=== PATIENT | female | born 1985 | race Caucasian/White ===

== ENCOUNTER 2016-11-02 04:44 | Inpatient (IN) | payer OTHER ==
[2016-11-02 05:15] LABS: APPEARANCE,URINE SLIGHTLY-CLOUDY; BILIRUBIN,URINE NEGATIVE (NEGATIVE); GLUCOSE, URINE NEGATIVE (NEGATIVE); KETONES,URINE TRACE mg/dL (NEGATIVE); LEUKOCYTE ESTERASE,URINE TRACE (NEGATIVE); NITRITE,URINE NEGATIVE (NEGATIVE); PROTEIN,URINE NEGATIVE (NEGATIVE); URINE SPECIFIC GRAVITY 1.006; UROBILINOGEN,URINE NEGATIVE mg/dL (<2.0)
[2016-11-02 05:31] LABS: URINE BARBITURATES SCREEN NEGATIVE; URINE METHADONE SCREEN NEGATIVE; URINE OPIATES LOW NEGATIVE; URINE PHENCYCLIDINE SCREEN NEGATIVE
[2016-11-02] MEDS ORDERED: RINGERS SOLUTION,LACTATED 1,000 ML IV PRN (05:45)
[2016-11-02] MEDS ORDERED: LIDOCAINE 1% INJ-PF (10 MG/ML) 30 ML SDV ONE (06:15)
[2016-11-02] MEDS ORDERED: OXYTOCIN/NORMAL SALINE 20 UNIT/1,000 ML RTUINJ ONE (06:15)
[2016-11-02] MEDS ORDERED: MISOPROSTOL 0.2 MG TABLET ONE (06:15)
[2016-11-02 06:24] LABS: ABSOLUTE BASOPHILS # (AUTO) 0.1 10^3/uL (0.0-0.2); ABSOLUTE EOSINOPHILS # (AUTO) 0.1 10^3/uL (0.0-0.6); ABSOLUTE LYMPHOCYTES (AUTO) 1.7 10^3/uL (0.5-4.7); ABSOLUTE MONOCYTES (AUTO) 0.6 10^3/uL (0.1-1.4); ABSOLUTE NEUT (AUTO) 11.5 10^3/uL (1.7-8.2); BASOPHILS % (AUTO) 0.6 % (0-2); EOSINOPHILS % (AUTO) 0.8 % (0-6); HEMATOCRIT 37.3 % (36.0-47.0); HEMOGLOBIN 13.2 g/dL (12.0-15.5); HGB HCT DIFFERENCE 2.3; MEAN CORPUSCULAR HEMOGLOBIN 32.2 pg (27.0-33.4); MEAN CORPUSCULAR HGB CONC 35.3 g/dL (32.0-36.0); MEAN CORPUSCULAR VOLUME 91 fl (80-97); RED BLOOD COUNT 4.09 10^6/uL (3.72-5.28); RED CELL DISTRIBUTION WIDTH 14.7 % (11.5-14.0); SEGMENTED NEUTROPHILS % (AUTO) 82.6 % (42-78); WHITE BLOOD COUNT 13.9 10^3/uL (4.0-10.5)
--- NOTE | 2016-11-02 08:01 | L&D Flow Sheet ---
LD Flowsheet Datetime Report Generated by CPN: 11/02/2016 08:00 Datetime: 11/02/2016 07:52 Vital Signs Stage of : Recovery (Meg Bishop RN) NBP Sys/Radha/Mean (mmHg): 140 (QS system process) : 74 (QS system process) : 99 (QS system process) Pulse: 107 (QS system process) Respirations: 18 (Meg Bishop RN) Pain Pain Scale: 1 (Meg Bishop, RN) Pain Presence: Constant (Meg Bishop, RN) Pain Type: Burning (Meg Bishop, RN) Pain Location: Perineum (Meg Bishop, RN) Datetime: 11/02/2016 07:47 Stage 2 Comments: Delivery liveborn male placed on maternal abdomen, dried and stimulated with lusty cry noted. Cord clamped and cut after delay with placement skin to skin on maternla chest (Meg Bishop, RN) Datetime: 11/02/2016 07:45 Pushing Position: Pushing with Contractions (Meg Bishop, RN) Pushing Progress: Descent with Pushing; with Pushing (Meg Dario, RN) Datetime: 11/02/2016 07:41 Stage 2 Pushing: Involuntary Pushing (Meg Dario, RN) Pushing Position: Pushing with Contractions (Meg Dario, RN) Pushing Progress: Presenting Part Visible (Meg Bishop, RN) Stage 2 Comments: Dr Raman and RN at bedside to remain at bedside throughout second stage continuously assessing heart rate while pushing with contractions. RN at bedside adjusting monitors (Meg Dario, RN) Datetime: 11/02/2016 07:40 Vaginal Exam Dilatation (cm): 10.0 (Meg Bishop, RN) Effacement (%): 100 (Meg Bishop, RN) Station: 3 (Meg Bishop, RN) Exam by: Vega (Meg Bishop, RN) Vaginal Bleeding: Normal Show (Meg Bishop, RN) Datetime: 11/02/2016 07:35 Monitor Interventions for UA: [place] Adjusted (Meg Dario, RN) Monitor Interventions for FHR: Ultrasound Adjusted (Meg Dario, RN) Patient Position/Activity: HOB Lowered; Peanut Ball; Right Extreme (Meg Bishop, RN) Datetime: 11/02/2016 07:33 Vaginal Exam Dilatation (cm): 9.5 (Meg Dario, RN) Effacement (%): 90 (Meg Dario, RN) Datetime: 11/02/2016 07:31 I/O Interventions: Straight Cath (ml) @ by Dr Vega (Meg Dario, RN) Datetime: 11/02/2016 07:26 Temperature (F): 97.7 (Meg Bishop, RN) Temperature (C): 36.5 (QS system process) Temperature Route: Axillary (Meg Bishop, RN) LaborFlag: Antepartum (QS system process) Datetime: 11/02/2016 07:19 Patient Position/Activity: Hands-Knees (Meglacey Bishop, RN) Datetime: 11/02/2016 07:15 Uterine Activity Monitor Mode: External; Palpation (Emg Dario, RN) Frequency (min): 2-4 (Meg Dario, RN) Quality: Moderate to Strong (Meg Dario, RN) Duration (sec): 50-80 (Meg Dario, RN) Resting Tone (Palpate): Relaxed (Meg Dario, RN) Assessment A Monitor Mode: External US (Meg Dario, RN) FHR Baseline Rate : 120 (Meg Dario, RN) Variability: Moderate 6-25 bpm (Meg Dario, RN) Accelerations: 15X15 (Meg Dario, RN) Decelerations: Early; Variable (Meg Dario, RN) Datetime: 11/02/2016 07:10 Pulse: 109 (QS system process) SpO2 (%): 97 (QS system process) LaborFlag: Antepartum (QS system process) Datetime: 11/02/2016 07:06 Communication Communication: RN at Bedside; Provider at Bedside (Sully Ring, RN) Datetime: 11/02/2016 07:05 Pulse: 115 (QS system process) SpO2 (%): 97 (QS system process) LaborFlag: Antepartum (QS system process) Datetime: 11/02/2016 07:03 Communication Comments: Report to A. Dario RN. Care relinquished at this time. (Sully Ring, RN) Datetime: 11/02/2016 07:01 NBP Sys/Radha/Mean (mmHg): 136 (QS system process) : 83 (QS system process) : 105 (QS system process) Pulse: 107 (QS system process) LaborFlag: Antepartum (QS system process) Datetime: 11/02/2016 07:00 Pulse: 107 (QS system process) SpO2 (%): 97 (QS system process) Uterine Activity Monitor Mode: External; Palpation (Sully Ring, RN) Frequency (min): 1.5-3 (Sully Ring, RN) Quality: Moderate to Strong (Sully Ring, RN) Duration (sec): 40-90 (Sully Ring, RN) Resting Tone (Palpate): Relaxed (Sully Ring, RN) Assessment A Monitor Mode: External US (Sully Ring, RN) FHR Baseline Rate : 145 (Sully Ring, RN) Variability: Moderate 6-25 bpm (Sully Ring, RN) Accelerations: None (Sully Ring, RN) Decelerations: Early; Late (Sully Ring, RN) LaborFlag: Antepartum (QS system process) Datetime: 11/02/2016 06:55 Pulse: 99 (QS system process) SpO2 (%): 97 (QS system process) SpO2 (%): 94 (QS system process) LaborFlag: Antepartum (QS system process) Datetime: 11/02/2016 06:54 Actions for Decelerations: IV Bolus (Sully Ring, RN) Oxygen Method: Non-Rebreather (Sully Ring, RN) Patient Position/Activity: Left Extreme (Sully Ring, RN) Datetime: 11/02/2016 06:52 Vaginal Exam Dilatation (cm): 8.5 (Sully Ring, RN) Effacement (%): 90 (Sully Ring, RN) Station: -1 (Sully Ring, RN) Exam by: B. Ring RN (Sully Ring, RN) Vaginal Bleeding: None (Sully Ring, RN) Cervix, Consistency: Soft (Sully Ring, RN) Datetime: 11/02/2016 06:51 Vaginal Exam Comments: Pt requesting to be checked and stating a lot of pressure. (Sully Ring, RN) Datetime: 11/02/2016 06:50 Pulse: 107 (QS system process) SpO2 (%): 95 (QS system process) LaborFlag: Antepartum (QS system process) Datetime: 11/02/2016 06:48 Pulse: 108 (QS system process) SpO2 (%): 94 (QS system process) LaborFlag: Antepartum (QS system process) Datetime: 11/02/2016 06:45 Pulse: 109 (QS system process) SpO2 (%): 91 (QS system process) LaborFlag: Antepartum (QS system process) Datetime: 11/02/2016 06:40 Pulse: 105 (QS system process) SpO2 (%): 94 (QS system process) LaborFlag: Antepartum (QS system process) Datetime: 11/02/2016 06:37 Pulse: 115 (QS system process) SpO2 (%): 94 (QS system process) LaborFlag: Antepartum (QS system process) Datetime: 11/02/2016 06:35 Pulse: 111 (QS system process) SpO2 (%): 93 (QS system process) LaborFlag: Antepartum (QS system process) Datetime: 11/02/2016 06:30 NBP Sys/Radha/Mean (mmHg): 136 (QS system process) : 85 (QS system process) : 105 (QS system process) Pulse: 102 (QS system process) Pulse: 101 (QS system process) Pulse: 106 (QS system process) SpO2 (%): 94 (QS system process) Uterine Activity Monitor Mode: External; Palpation (Sully Ring, RN) Frequency (min): 1.5-3 (Sully Ring, RN) Quality: Moderate to Strong (Sully Ring, RN) Duration (sec): 50-90 (Sully Ring, RN) Resting Tone (Palpate): Relaxed (Sully Ring, RN) Assessment A Monitor Mode: External US (Sully Ring, RN) FHR Baseline Rate : 140 (Sully Ring, RN) Variability: Moderate 6-25 bpm (Sully Ring, RN) Accelerations: 15X15 (Sully Ring, RN) Decelerations: Late (Sully Ring, RN) Actions for Decelerations: IV Bolus; Provider Reviewed Strip (Sully Ring, RN) LaborFlag: Antepartum (QS system process) Datetime: 11/02/2016 06:26 Comments: RN at bedside. Maternal heartrate recorded. Monitors adjusted. (Sully Ring, RN) Datetime: 11/02/2016 06:23 Actions for Decelerations: Side to Side (Sully Ring, RN) Patient Position/Activity: Left Extreme (Sully Ring, RN) Datetime: 11/02/2016 06:21 Patient Position/Activity: Right Lateral (Sully Ring, RN) Datetime: 11/02/2016 06:20 Vaginal Exam Dilatation (cm): 6.5 (Sully Ring, RN) Effacement (%): 90 (Sully Ring, RN) Station: -2 (Sully Ring, RN) Exam by: Dr. Vega (Sully Ring, RN) Membrane Status: Ruptured (Sully Ring, RN) Membranes Rupture Method: Artificial (Sully Ring, RN) Amniotic Fluid Color: Clear (Sully Ring, RN) Amniotic Fluid Amount: Moderate (Sully Ring, RN) Cervix, Consistency: Soft (Sully Ring, RN) Datetime: 11/02/2016 06:18 Communication Communication: RN at Bedside; Provider at Bedside (Sully Ring, RN) Datetime: 11/02/2016 06:15 Provider Reviewed Strip: Yes (Sully Ring, RN) Communication Comments: DrJonathan Vega on nurse's unit (Sully Ring, RN) Datetime: 11/02/2016 06:00 NBP Sys/Radha/Mean (mmHg): 134 (QS system process) : 86 (QS system process) : 105 (QS system process) Pulse: 110 (QS system process) Uterine Activity Monitor Mode: External; Palpation (Sully Ring, RN) Frequency (min): 1.5-3.5 (Sully Ring, RN) Quality: Moderate to Strong (Sully Ring, RN) Duration (sec): 40-80 (Sully Ring, RN) Resting Tone (Palpate): Relaxed (Sully Ring, RN) Assessment A Monitor Mode: External US (Sully Ring, RN) FHR Baseline Rate : 140 (Sully Ring, RN) Variability: Moderate 6-25 bpm (Sully Ring, RN) Accelerations: 15X15 (Sully Ring, RN) Decelerations: Late; Variable (Sully Ring, RN) LaborFlag: Antepartum (QS system process) Datetime: 11/02/2016 05:50 Procedures: Consents Signed (Crystal Blanding, RN) Datetime: 11/02/2016 05:46 Actions for Decelerations: Oxygen Applied (Sully Ring, RN) Patient Position/Activity: Left Extreme (Sully Ring, RN) Communication Communication: RN at Bedside (Sully Ring, RN) Datetime: 11/02/2016 05:45 Patient Care IV/Blood Work: IV Started; IV Bolus Started (Renate Nolan, RN) Patient Care Comments: LR bolus started (Renate Nolan, RN) Datetime: 11/02/2016 05:38 Communication Comments: Call placed to Dr. Vega. Report to include relevant patient history, SVE, toco data, FHR, vitals. Orders received to admit patient and provider en route to unit. (Sully Sunshine, RN) Datetime: 11/02/2016 05:30 NBP Sys/Radha/Mean (mmHg): 121 (QS system process) : 78 (QS system process) : 94 (QS system process) Pulse: 104 (QS system process) Assessment A Monitor Mode: External US (Sully Ring, RN) FHR Baseline Rate : 145 (Sully Ring, RN) Variability: Minimal - Undetectable to <=5 bpm (Sully Ring, RN) Accelerations: None (Sully Ring, RN) Decelerations: Variable (Sully Ring, RN) Actions for Decelerations: Side to Side (Sully Ring, RN) Comments: (Sully Ring, RN) LaborFlag: Antepartum (QS system process) Datetime: 11/02/2016 05:06 Vaginal Exam Dilatation (cm): 4.0 (Sully Ring, RN) Effacement (%): 80 (Sully Ring, RN) Station: -2 (Sully Ring, RN) Exam by: B. Ring RN (Sully Ring, RN) Vaginal Bleeding: None (Sully Ring, RN) Cervix, Consistency: Soft (Sully Ring, RN) Datetime: 11/02/2016 05:05 I/O Interventions: Clear Liquids Given (Sully Ring, RN) Datetime: 11/02/2016 05:00 NBP Sys/Radha/Mean (mmHg): 137 (QS system process) : 79 (QS system process) : 102 (QS system process) Pulse: 100 (QS system process) Respirations: 18 (Sully Ring, RN) Temperature (F): 99.0 (Sully Ring, RN) Temperature (C): 37.2 (QS system process) Temperature Route: Oral (Sully Ring, RN) Frequency (min): every 4-5 minutes per pt (Sully Ring, RN) Pain Pain Scale: 2 (Sully Ring, RN) Pain Presence: Intermittent (Sully Ring, RN) Pain Type: Contraction (Sully Ring, RN) Pain Location: Abdomen; Back; Perineum (Sully Ring, RN) Pain Goal: 1 (Sully Ring, RN) Pain Relief Measures: Comfort Measures (Sully Ring, RN) Pain Coping: Talking Through Contractions; Breathing Through Contractions; Declines Medication or Epidural (Sully Ring, RN) Membrane Status: Intact (Sully Ring, RN) Vaginal Bleeding: None (Sully Ring, RN) Maternal Assessment Level of Consciousness: Fully Conscious (Sully Ring, RN) DTR's/Clonus: DTRs 2+; No Clonus (Sully Ring, RN) Headache: Denies (Sully Ring, RN) Breath Sounds, Left: Clear and Equal (Sully Ring, RN) Breath Sounds, Right: Clear and Equal (Sully Ring, RN) Nausea/Vomiting: Denies (Sully Ring, RN) RUQ Epigastric Pain: Denies (Sully Ring, RN) Teaching Instructional Method: Verbal; Patient Instructed; Family/Support Person Instructed; Verbalized Understanding (Sully Ring, RN) Plan of Care: Plan of Care Discussed (Sully Ring, RN) Unit Routine: [place] to Room; Call Moses; Bed; Handwashing; Monitoring; Safety/Fall Risk Prevention; Bathroom Privileges (Sully Ring, RN) LaborFlag: Antepartum (QS system process) Datetime: 11/02/2016 04:56 Vital Signs Stage of : Antepartum (Sully Ring, RN) Datetime: 11/02/2016 04:44 Membranes Ruptured Date/Time: 11/02/2016 06:22 (Sully Sunshine RN) Amniotic Fluid Odor: Normal (Meg Bishop RN)
[2016-11-02] MEDS ORDERED: ZOLPIDEM TARTRATE 5 MG TABLET PO PRN (08:53)
[2016-11-02] MEDS ORDERED: DIPH/PERTUSS(ACELL)/TETANUS VAC/PF 0.5 ML SYR (>=10YO) IM PRN (08:53)
[2016-11-02] MEDS ORDERED: ACETAMINOPHEN WITH CODEINE #3 TABLET PO PRN ×2 (08:53)
[2016-11-02] MEDS ORDERED: MEASLES,MUMPS&RUBELLA VACC/PF 0.5 ML VIAL SUBCUT PRN (08:53)
[2016-11-02] MEDS ORDERED: OXYTOCIN/NORMAL SALINE 1,000 ML IV PRN (08:53)
[2016-11-02] MEDS ORDERED: BENZOCAINE/MENTHOL AEROSOL SPRAY 56 ML TOP PRN (08:53)
[2016-11-02] MEDS ORDERED: DIBUCAINE 1% OINTMENT 28 GM TP PRN (08:53)
[2016-11-02] MEDS ORDERED: PRENATAL VITAMIN W-O CA NO5/FE FUMARATE/FA CAPSULE ONE (10:04)
[2016-11-02] MEDS ORDERED: FERROUS SULFATE 325 MG TABLET PO ONE (10:05)
[2016-11-02] MEDS ORDERED: DOCUSATE SODIUM 100 MG CAPSULE ONE (10:05)
[2016-11-02] MEDS ORDERED: SENNOSIDES/DOCUSATE 8.6-50 MG 1 EACH TABLET ONE (10:05)
[2016-11-02] MEDS: PRENATAL VITAMIN W-O CA NO5/FE FUMARATE/FA CAPSULE PO SCH (10:06)
[2016-11-02] MEDS: FERROUS SULFATE 325 MG TABLET PO SCH ×2 (10:06→17:54)
[2016-11-02] MEDS: SENNOSIDES/DOCUSATE 8.6-50 MG 1 EACH TABLET PO SCH (10:06)
[2016-11-02] MEDS: DOCUSATE SODIUM 100 MG CAPSULE PO SCH ×2 (10:06→17:54)
--- NOTE | 2016-11-02 10:31 | Delivery Summary ---
Del Sum A-C Datetime Report Generated by CPN: 11/02/2016 10:31 DELIVERY PERSONNEL DELIVERY PERSONNEL: [phone] Delivery Doctor:: Anastasia Vega MD Labor and Delivery Nurse:: Meg Bishop RNinstrumental teacher Nurse:: LUZ De León Nursery Nurse:: LUZ [place] Yeast Maker/INFECTION PREVENTION PRACTITIONER: [facility] Yeast Maker/INFECTION PREVENTION PRACTITIONER: Zenaida Phillips, ENTERPRISE INTEGRATION DEVELOPER Additional Personnel: : Jael Soliz, RNC MATERNAL INFORMATION Delivery Anesthesia: Local Medications After Delivery: Pitocin Bolus-Please Comment Meds After Delivery Comment: Pitocin 20 units in 1000 ml NSS open for bolus Maternal Complications: None Provider Comments: VMI delivered in [place] presentation with tight nuchal cord. Shoulders and body delivered without difficulty. Cord doubly clamped and cut and to maternal abdomen. Placenta delivered intact spontaneously. FF at U. 2nd degree perineal laceration repaired in usual fashion and hemostatic. Mother and baby stable upon provider leaving the room. Apgars 9/10. LABOR SUMMARY EDC: 11/13/2016 00:00 No. Babies in Womb: 1 Attempted: No Labor Anesthesia: None LABOR INFORMATION Reason for Induction: Not Applicable Complete Dilatation: 11/02/2016 07:40 Oxytocin: N/A Group B Beta Strep: negative Antibiotics # of Doses: 0 Steroids Given: None Reason Steroids Not Administered: Not Applicable MEMBRANES Membranes Rupture Method: Artificial Rupture of Membranes: 11/02/2016 06:22 Length of Rupture (hr): 1.42 Amniotic Fluid Color: Clear Amniotic Fluid Amount: Moderate Amniotic Fluid Odor: Normal STAGES OF LABOR Stage 2 hr: 0 Stage 2 min: 7 Stage 3 hr: -23 Stage 3 min: -56 VAGINAL DELIVERY Episiotomy: None Laceration Extension: Second Degree Laceration Type: Perineal Laceration Repair: Yes Laceration Repair Note: 2nd degree laceration repaired in usual fashion Sponge Count Correct: N/A Sharps Count Correct: N/A CSECTION DELIVERY Primary Indication: N/A Secondary Indication: N/A CSection Urgency: N/A CSection Incidence: N/A Labor: N/A Elective: N/A CSection Incision: N/A BABY A INFORMATION Delivery Date/Time: 11/02/2016 07:47 Method of Delivery: Vaginal Born in Route : No : N/A Forceps: N/A Vacuum Extraction: N/A Shoulder Dystocia : No PRESENTATION/POSITION BABY A Presentation: Cephalic Cephalic Presentation: Vertex Breech Presentation: N/A PLACENTA INFORMATION BABY A Placenta Delivery Time : 11/01/2016 07:51 Placenta Method of Delivery: Spontaneous Placenta Status: Delivered SCORES BABY A Heart Rate 1 min: >100 bpm Resp Effort 1 min: Good Cry Reflex Irritability 1 min: Cough or Sneeze or Pulls Away Muscle Tone 1 min: Active Motion Color 1 min: Body [place], Extremities Blue Resuscitation Effort 1 min: Tactile Stimulation SCORE 1 MIN: 9 Heart Rate 5 min: >100 bpm Resp Effort 5 min: Good Cry Reflex Irritability 5 min: Cough or Sneeze or Pulls Away Muscle Tone 5 min: Active Motion Color 5 min: Completely [place] Resuscitation Effort 5 min: N/A SCORE 5 MIN: 10 Resuscitation Effort 10 min: N/A INFORMATION BABY A Gestational Age at Delivery: 38.3 Gestational Status: Early Term- 37- 38.6 Weeks Outcome : Liveborn Condition : Stable Infant Sex: Male IDENTIFICATION BABY A Infant Verification Date/Time: 11/02/2016 08:02 ID Band Number: [id number] Mother's Name Verified: Yes Infant RN Verifying : Jael Smithfield RNC Additional Verifying Personnel: D [facility] RNC WEIGHT/LENGTH BABY A Infant Birthweight (gm): 3790 Infant Weight (lb): 8 Infant Weight (oz): 6 Length (in): 19.75 Length (cm): 50.17 CORD INFORMATION BABY A No. Cord Vessels: 3 Nuchal Cord : Around Neck x1, Loose Cord Blood Taken: Yes-For Storage (Mom's Blood type +) Infant Suction: Mouth; Nose ASSESSMENT BABY A Complications: Multiple Variable Decels Respirations: Appears Normal Skin to Skin: Yes Truck Packer/ALS Called : No BABY B INFORMATION : N/A SIGNATURES Signature: with User ID: [email or web address]
--- NOTE | 2016-11-02 12:54 | L&D Discharge Summary ---
OB Discharge Summary Datetime Report Generated by CPN: 11/02/2016 12:54 DISCHARGE DIAGNOSIS Gestation: 38.3 Number of Babies in Womb: 1 Parity: 1
[2016-11-02] MEDS: IBUPROFEN 800 MG TABLET PO SCH ×2 (13:48→21:27)
--- NOTE | 2016-11-02 16:46 | L&D Discharge Summary ---
OB Discharge Summary Datetime Report Generated by CPN: 11/02/2016 16:45 DISCHARGE DIAGNOSIS Gestation: 38.3 Number of Babies in Womb: 1 Parity: 1
--- NOTE | 2016-11-02 16:46 | L&D Flow Sheet ---
LD Flowsheet Datetime Report Generated by CPN: 11/02/2016 16:45 Datetime: 11/02/2016 09:37 NBP Sys/Radha/Mean (mmHg): 122 (QS system process) : 66 (QS system process) : 86 (QS system process) Pulse: 90 (QS system process) Respirations: 16 (Meg Dario, RN) Datetime: 11/02/2016 09:22 NBP Sys/Radha/Mean (mmHg): 124 (QS system process) : 63 (QS system process) : 90 (QS system process) Pulse: 97 (QS system process) Respirations: 16 (Meg Bishop, RN) Datetime: 11/02/2016 09:07 NBP Sys/Radha/Mean (mmHg): 115 (QS system process) : 59 (QS system process) : 82 (QS system process) Pulse: 104 (QS system process) Respirations: 16 (Meg Bishop, RN) Datetime: 11/02/2016 08:52 NBP Sys/Radha/Mean (mmHg): 120 (QS system process) : 68 (QS system process) : 91 (QS system process) Pulse: 98 (QS system process) Respirations: 16 (Meg Bishop, RN) Datetime: 11/02/2016 08:37 NBP Sys/Radha/Mean (mmHg): 126 (QS system process) : 74 (QS system process) : 93 (QS system process) Pulse: 101 (QS system process) Respirations: 16 (Meg Dario, RN) Datetime: 11/02/2016 08:22 NBP Sys/Radha/Mean (mmHg): 130 (QS system process) : 67 (QS system process) : 90 (QS system process) Pulse: 109 (QS system process) Respirations: 16 (Meg Dario, RN) Datetime: 11/02/2016 08:07 NBP Sys/Radha/Mean (mmHg): 136 (QS system process) : 65 (QS system process) : 93 (QS system process) Pulse: 109 (QS system process) Respirations: 16 (Meg Dario, RN) Datetime: 11/02/2016 07:52 Stage of : Recovery (Meg Bishop RN) NBP Sys/Radha/Mean (mmHg): 140 (QS system process) : 74 (QS system process) : 99 (QS system process) Pulse: 107 (QS system process) Respirations: 18 (Meg Bishop RN) Pain Scale: 1 (Meg Bishop RN) Pain Presence: Constant (Meg Bishop RN) Pain Type: Burning (Meg Bishop RN) Pain Location: Perineum (Meg Bishop RN) Datetime: 11/02/2016 07:47 Stage 2 Comments: Delivery liveborn male placed on maternal abdomen, dried and stimulated with lusty cry noted. Cord clamped and cut after delay with placement skin to skin on maternla chest (Meg Bishop RN) Datetime: 11/02/2016 07:45 Monitor Mode: External; Palpation (Meg Bishop RN) Frequency (min): 2-3 (Meg Bishop RN) Quality: Strong (Meg Bishop RN) Duration (sec): 60-70 (Meg Bishop, RN) Resting Tone (Palpate): Relaxed (Meg Bishop, RN) Monitor Mode: External US (Meg Bishop RN) FHR Baseline Rate : 125 (Meg Bishop RN) Variability: Moderate 6-25 bpm (Meglacey Bishop, RN) Decelerations: Variable; Prolonged (Meg Bishop, RN) Pushing Position: Pushing with Contractions (Meg Bishop RN) Pushing Progress: Descent with Pushing; with Pushing (Meg Bishop, RN) Datetime: 11/02/2016 07:41 Pushing: Involuntary Pushing (Meg Bishop RN) Pushing Position: Pushing with Contractions (Meg Bishop RN) Pushing Progress: Presenting Part Visible (Meg Bishop RN) Stage 2 Comments: Dr Raman and RN at bedside to remain at bedside throughout second stage continuously assessing heart rate while pushing with contractions. RN at bedside adjusting monitors (Meg Bishop RN) Datetime: 11/02/2016 07:40 Dilatation (cm): 10.0 (Meg Bishop, MICHAEL) Effacement (%): 100 (Meg Bishop, MICHAEL) Station: 3 (Meg Bishop, MICHAEL) Exam by: Gary (Meg Bishop RN) Vaginal Bleeding: Normal Show (Meg Bishop, MICHAEL) Datetime: 11/02/2016 07:35 Monitor Interventions for UA: [place] Adjusted (Meg Bishop, MICHAEL) Monitor Interventions for FHR: Ultrasound Adjusted (Meg Bishop, MICHAEL) Patient Position/Activity: HOB Lowered; Peanut Ball; Right Extreme (Meg Bishop, MICHAEL) Datetime: 11/02/2016 07:33 Dilatation (cm): 9.5 (Meg Bishop RN) Effacement (%): 90 (Meg Bishop RN) Datetime: 11/02/2016 07:31 I/O Interventions: Straight Cath (ml) @ by Dr Vega (Meg Bishop RN) Datetime: 11/02/2016 07:30 Monitor Mode: External; Palpation (Meg Bishop RN) Frequency (min): 2 (Meg Bishop RN) Quality: Strong (Meg Bishop RN) Duration (sec): 60-70 (Meg Bishop RN) Resting Tone (Palpate): Relaxed (Meg Bishop RN) Monitor Mode: External US (Meg Bishop RN) FHR Baseline Rate : 125 (Meg Bishop RN) Variability: Moderate 6-25 bpm (Meg Bishop RN) Accelerations: 15X15 (Meg Bishop RN) Decelerations: Variable (Meg Bishop RN) Datetime: 11/02/2016 07:26 Temperature (F): 97.7 (Meg Bishop RN) Temperature (C): 36.5 (QS system process) Temperature Route: Axillary (Meg Bishop RN) LaborFlag: Antepartum (QS system process) Datetime: 11/02/2016 07:19 Patient Position/Activity: Hands-Knees (Meg Bishop RN) Datetime: 11/02/2016 07:15 Monitor Mode: External; Palpation (Meg Dario, RN) Frequency (min): 2-4 (Meg Bishop, RN) Quality: Moderate to Strong (Meg Bishop, RN) Duration (sec): 50-80 (Meg Bishop RN) Resting Tone (Palpate): Relaxed (Meg Bishop RN) Monitor Mode: External US (Meg Bishop RN) FHR Baseline Rate : 120 (Meg Bishop, RN) Variability: Moderate 6-25 bpm (Meg Bishop, RN) Accelerations: 15X15 (Meg Bishop RN) Decelerations: Early; Variable (Meg Bishop, RN) Datetime: 11/02/2016 07:10 Pulse: 109 (QS system process) SpO2 (%): 97 (QS system process) LaborFlag: Antepartum (QS system process) Datetime: 11/02/2016 07:06 Communication: RN at Bedside; Provider at Bedside (Sully Sunshine RN) Datetime: 11/02/2016 07:05 Pulse: 115 (QS system process) SpO2 (%): 97 (QS system process) LaborFlag: Antepartum (QS system process) Datetime: 11/02/2016 07:03 Communication Comments: Report to Deep Bishop RN. Care relinquished at this time. ([facility], RN) Datetime: 11/02/2016 07:01 NBP Sys/Radha/Mean (mmHg): 136 (QS system process) : 83 (QS system process) : 105 (QS system process) Pulse: 107 (QS system process) LaborFlag: Antepartum (QS system process) Datetime: 11/02/2016 07:00 Pulse: 107 (QS system process) SpO2 (%): 97 (QS system process) Monitor Mode: External; Palpation (Sully Ring, RN) Frequency (min): 1.5-3 (Sully Ring, RN) Quality: Moderate to Strong (Sully Ring, RN) Duration (sec): 40-90 (Sully Ring, RN) Resting Tone (Palpate): Relaxed (Sully Ring, RN) Monitor Mode: External US (Sully Ring, RN) FHR Baseline Rate : 145 (Sully Ring, RN) Variability: Moderate 6-25 bpm (Sully Ring, RN) Accelerations: None (Sully Ring, RN) Decelerations: Early; Late (Sully Ring, RN) LaborFlag: Antepartum (QS system process) Datetime: 11/02/2016 06:55 Pulse: 99 (QS system process) SpO2 (%): 97 (QS system process) SpO2 (%): 94 (QS system process) LaborFlag: Antepartum (QS system process) Datetime: 11/02/2016 06:54 Actions for Decelerations: IV Bolus (Sully Ring, RN) Oxygen Method: Non-Rebreather (Sully Ring, RN) Patient Position/Activity: Left Extreme (Sully Ring, RN) Datetime: 11/02/2016 06:52 Dilatation (cm): 8.5 (Sully Ring, RN) Effacement (%): 90 (Sully Ring, RN) Station: -1 (Sully Ring, RN) Exam by: B. Ring RN (Sully Ring, RN) Vaginal Bleeding: None (Sully Ring, RN) Cervix, Consistency: Soft (Sully Ring, RN) Datetime: 11/02/2016 06:51 Vaginal Exam Comments: Pt requesting to be checked and stating a lot of pressure. (Sully Ring, RN) Datetime: 11/02/2016 06:50 Pulse: 107 (QS system process) SpO2 (%): 95 (QS system process) LaborFlag: Antepartum (QS system process) Datetime: 11/02/2016 06:48 Pulse: 108 (QS system process) SpO2 (%): 94 (QS system process) LaborFlag: Antepartum (QS system process) Datetime: 11/02/2016 06:45 Pulse: 109 (QS system process) SpO2 (%): 91 (QS system process) LaborFlag: Antepartum (QS system process) Datetime: 11/02/2016 06:40 Pulse: 105 (QS system process) SpO2 (%): 94 (QS system process) LaborFlag: Antepartum (QS system process) Datetime: 11/02/2016 06:37 Pulse: 115 (QS system process) SpO2 (%): 94 (QS system process) LaborFlag: Antepartum (QS system process) Datetime: 11/02/2016 06:35 Pulse: 111 (QS system process) SpO2 (%): 93 (QS system process) LaborFlag: Antepartum (QS system process) Datetime: 11/02/2016 06:30 NBP Sys/Radha/Mean (mmHg): 136 (QS system process) : 85 (QS system process) : 105 (QS system process) Pulse: 102 (QS system process) Pulse: 101 (QS system process) Pulse: 106 (QS system process) SpO2 (%): 94 (QS system process) Monitor Mode: External; Palpation (Sully Ring, RN) Frequency (min): 1.5-3 (Sully Ring, RN) Quality: Moderate to Strong (Sully Ring, RN) Duration (sec): 50-90 (Sully Ring, RN) Resting Tone (Palpate): Relaxed (Sully Ring, RN) Monitor Mode: External US (Sully Ring, RN) FHR Baseline Rate : 140 (Sully Ring, RN) Variability: Moderate 6-25 bpm (Sully Ring, RN) Accelerations: 15X15 (Sully Ring, RN) Decelerations: Late (Sully Ring, RN) Actions for Decelerations: IV Bolus; Provider Reviewed Strip (Sully Ring, RN) LaborFlag: Antepartum (QS system process) Datetime: 11/02/2016 06:26 Comments: RN at bedside. Maternal heartrate recorded. Monitors adjusted. (Sully Ring, RN) Datetime: 11/02/2016 06:23 Actions for Decelerations: Side to Side (Sully Ring, RN) Patient Position/Activity: Left Extreme (Sully Ring, RN) Datetime: 11/02/2016 06:21 Patient Position/Activity: Right Lateral (Sully Ring, RN) Datetime: 11/02/2016 06:20 Dilatation (cm): 6.5 (Sully Ring, RN) Effacement (%): 90 (Sully Ring, RN) Station: -2 (Sully Ring, RN) Exam by: Dr. Vega (Sully Ring, RN) Membrane Status: Ruptured (Sully Ring, RN) Membranes Rupture Method: Artificial (Sully Ring, RN) Amniotic Fluid Color: Clear (Sully Ring, RN) Amniotic Fluid Amount: Moderate (Sully Ring, RN) Cervix, Consistency: Soft (Sully Ring, RN) Datetime: 11/02/2016 06:18 Communication: RN at Bedside; Provider at Bedside (Sully Ring, RN) Datetime: 11/02/2016 06:15 Provider Reviewed Strip: Yes (Sully Sunshine, RN) Communication Comments: Dr. Vega on nurse's unit (Sully Ring, RN) Datetime: 11/02/2016 06:00 NBP Sys/Radha/Mean (mmHg): 134 (QS system process) : 86 (QS system process) : 105 (QS system process) Pulse: 110 (QS system process) Monitor Mode: External; Palpation (Sully Ring, RN) Frequency (min): 1.5-3.5 (Sully Ring, RN) Quality: Moderate to Strong (Sully Ring, RN) Duration (sec): 40-80 (Sully Ring, RN) Resting Tone (Palpate): Relaxed (Sully Ring, RN) Monitor Mode: External US (Sully Ring, RN) FHR Baseline Rate : 140 (Sully Ring, RN) Variability: Moderate 6-25 bpm (Sully Ring, RN) Accelerations: 15X15 (Sully Ring, RN) Decelerations: Late; Variable (Sully Ring, RN) LaborFlag: Antepartum (QS system process) Datetime: 11/02/2016 05:50 Procedures: Consents Signed (Ann [place], RN) Datetime: 11/02/2016 05:46 Actions for Decelerations: Oxygen Applied (Sully Ring, RN) Patient Position/Activity: Left Extreme (Sully Ring, RN) Communication: RN at Bedside (Sully Ring, RN) Datetime: 11/02/2016 05:45 IV/Blood Work: IV Started; IV Bolus Started (Renate Nolan, RN) Patient Care Comments: LR bolus started (Renate Nolan, RN) Datetime: 11/02/2016 05:38 Communication Comments: Call placed to Dr. Vega. Report to include relevant patient history, SVE, toco data, FHR, vitals. Orders received to admit patient and provider en route to unit. (Sully Ring, RN) Datetime: 11/02/2016 05:30 NBP Sys/Radha/Mean (mmHg): 121 (QS system process) : 78 (QS system process) : 94 (QS system process) Pulse: 104 (QS system process) Monitor Mode: External US (Sully Ring, RN) FHR Baseline Rate : 145 (Sully Ring, RN) Variability: Minimal - Undetectable to <=5 bpm (Sully Ring, RN) Accelerations: None (Sully Ring, RN) Decelerations: Variable (Sully Ring, RN) Actions for Decelerations: Side to Side (Sully Ring, RN) Comments: (Sully Ring, RN) LaborFlag: Antepartum (QS system process) Datetime: 11/02/2016 05:06 Dilatation (cm): 4.0 (Sully Ring, RN) Effacement (%): 80 (Sully Ring, RN) Station: -2 (Sully Ring, RN) Exam by: B. Ring RN (Sully Ring, RN) Vaginal Bleeding: None (Sully Ring, RN) Cervix, Consistency: Soft (Sully Ring, RN) Datetime: 11/02/2016 05:05 I/O Interventions: Clear Liquids Given (Sully Ring, RN) Datetime: 11/02/2016 05:00 NBP Sys/Radha/Mean (mmHg): 137 (QS system process) : 79 (QS system process) : 102 (QS system process) Pulse: 100 (QS system process) Respirations: 18 (Sully Ring, RN) Temperature (F): 99.0 (Sully Ring, RN) Temperature (C): 37.2 (QS system process) Temperature Route: Oral (Sully Ring, RN) Frequency (min): every 4-5 minutes per pt (Sully Ring, RN) Pain Scale: 2 (Sully Ring, RN) Pain Presence: Intermittent (Sully Ring, RN) Pain Type: Contraction (Sully Ring, RN) Pain Location: Abdomen; Back; Perineum (Sully Ring, RN) Pain Goal: 1 (Sully Sunshine RN) Pain Relief Measures: Comfort Measures (Sully Sunshine RN) Pain Coping: Talking Through Contractions; Breathing Through Contractions; Declines Medication or Epidural (Sully Sunshine RN) Membrane Status: Intact (Sully Sunshine, RN) Vaginal Bleeding: None (Sully Sunshine RN) Level of Consciousness: Fully Conscious (Sully Sunshine RN) DTR's/Clonus: DTRs 2+; No Clonus (Sully Sunshine RN) Headache: Denies (Sully Sunshine RN) Breath Sounds, Left: Clear and Equal (Sully Sunshine RN) Breath Sounds, Right: Clear and Equal (Sully Sunshine RN) Nausea/Vomiting: Denies (Sully Sunshine RN) RUQ Epigastric Pain: Denies (Sully Sunshine RN) Instructional Method: Verbal; Patient Instructed; Family/Support Person Instructed; Verbalized Understanding (Sully Sunshine RN) Plan of Care: Plan of Care Discussed (Sully Sunshine RN) Unit Routine: Cascade to Room; Call Moses; Bed; Handwashing; Monitoring; Safety/Fall Risk Prevention; Bathroom Privileges (Sully Sunshine RN) LaborFlag: Antepartum (QS system process) Datetime: 11/02/2016 04:56 Stage of : Antepartum (Sully Sunshine RN) Datetime: 11/02/2016 04:44 Membranes Ruptured Date/Time: 11/02/2016 06:22 (Sully Sunshine RN) Amniotic Fluid Odor: Normal (Meg Bishop RN)
--- NOTE | 2016-11-02 16:46 | L&D Current Admission ---
Current Admit Datetime Report Generated by CPN: 11/02/2016 16:45 ADMISSION INFORMATION Current Admit Date/Time: 11/02/2016 05:38 (11/02/2016 05:55:Sully Sunshine RN) Reason for Admission: Onset of Labor (11/02/2016 05:55:Sully Sunshine RN) Chief Complaint: Contractions (11/02/2016 05:55:Sully Sunshine RN) Chief Complaint: Contractions (11/02/2016 05:00:Sully Sunshine RN) Medications During : Ferrous Sulfate (Iron); Vitamin (11/02/2016 05:55:Sully Sunshine RN) EGA per Dates: 38.3 (11/02/2016 05:55:QS system process) Method of Arrival: Wheelchair (11/02/2016 05:55:Sully Sunshine RN) Admitted From: Home (11/02/2016 05:55:Sully Sunshine RN) Reason for Induction: Not Applicable (11/02/2016 05:55:Sully Sunshine RN) Records Available: Yes (11/02/2016 05:55:Sully Sunshine RN) General Admission Information: Reviewed; Updated (11/02/2016 05:55:Sully Sunshine RN) General Admission Reviewed By: Rosalie Sunshine RN (11/02/2016 05:55:Sully Sunshine RN) BELONGINGS/ADVANCED DIRECTIVES Other Belongings: See [facility] valuables form (11/02/2016 05:55:Sully Sunshine RN) Disposition of Belongings: Kept with Patient (11/02/2016 05:55:Sully Sunshine RN) Advance Direct for Healthcare: No, and Wants No Information (11/02/2016 05:55:Sully Sunshine RN) Durable Power of Laboratory Worker: No (11/02/2016 05:55:Sully Sunshine RN) Living Will: No (11/02/2016 05:55:Sully Sunshine RN) Organ Donor: No (11/02/2016 05:55:Sully Sunshine RN) Pt Rights Information Given: Yes (11/02/2016 05:55:Sully Sunsihne RN) Pt Understands Pt Rights: Yes (11/02/2016 05:55:Sully Sunshine RN) LEARNING ASSESSMENT Knowledge Level: Understands L_D Process; Understands Diagnosis (11/02/2016 05:55:Sully Sunshine RN) Barriers to Learning: None (11/02/2016 05:55:Sully Sunshine RN) Learning Readiness: Motivated (11/02/2016 05:55:Sully Sunshine RN) Learns Best By: 1 to 1 Instruction; Videos (11/02/2016 05:55:Sully Sunshine RN) Learning Needs: Labor and Delivery Process (11/02/2016 05:55:Sully Sunshine RN) DOMESTIC VIOLANCE SCREENING Dom Viol Threatened/Hurt: No (11/02/2016 05:55:Sully Sunshine RN) Hx of Abuse/Neglect past 2yrs: No (11/02/2016 05:55:Sully Sunshine RN) Feel Unsafe Going Home: No (11/02/2016 05:55:Sully Sunshine RN) Addt'l Observ Indicating Abuse: No (11/02/2016 05:55:Sully Sunshine RN) Reason Unable to Complete Screen: N/A, Screen Completed (11/02/2016 05:55:Sully Sunshine RN) Considered Personal Harm/Suicide: No (11/02/2016 05:55:Sully Sunshine RN) NUTRITIONAL/FUNCTIONAL SCREENING Problem with Appetite >5 Days: No (11/02/2016 05:55:Sully Sunshine RN) Chew/Swallow Difficulties: No (11/02/2016 05:55:Sully Sunshine RN) Inappropriate Wt Gain/Loss: No (11/02/2016 05:55:Sully Sunshine RN) Presence Skin Breakdown/Ulcer: No (11/02/2016 05:55:Sully Sunshine RN) Special Diet: No (11/02/2016 05:55:Sully Sunshine RN) Pt Requests Ladies' Hat Trimmer Visit: No (11/02/2016 05:55:Sully Sunshine RN) Hx of Any of the Following?: N/A (11/02/2016 05:55:Sully Sunshine RN) New Diagnosis of: N/A (11/02/2016 05:55:Sully Sunshine RN) Requires Assist w/Ambulation: No (11/02/2016 05:55:Sully Sunshine RN) Uses Assist Device to Ambulate: No (11/02/2016 05:55:Sully Sunshine RN) Pt Requires Help w/ADL's: No (11/02/2016 05:55:Sully Sunshine RN)
--- NOTE | 2016-11-02 16:46 | L&D General Admission ---
General Admit Datetime Report Generated by CPN: 11/02/2016 16:45 INFORMATION Patient Age: 31 (08/26/2016 12:49:QS system process) EDC: 11/13/2016 00:00 (11/02/2016 04:44:Kari Suggs RN) : 2 (11/02/2016 04:44:Kari Suggs RN) Para: 1 (11/02/2016 04:44:Kari Suggs RN) Term: 1 (11/02/2016 04:44:Kari Suggs RN) : 0 (11/02/2016 04:44:Kari Suggs RN) Spontaneous Abortions: 0 (11/02/2016 04:44:Kari Suggs RN) Induced Abortions: 0 (11/02/2016 04:44:Kari Suggs RN) Livin (11/02/2016 04:44:Kari Suggs RN) Cesareans: 0 (11/02/2016 04:44:Sully Sunshine RN) VBACs: 0 (11/02/2016 04:44:Sully Sunshine RN) Ectopic: 0 (11/02/2016 04:44:Sully Sunshine RN) Multiple Births: 0 (11/02/2016 04:44:Sully Sunshine RN) Baby, Number in Womb: 1 (11/02/2016 04:44:Kari Suggs RN) CARE [facility] (11/02/2016 04:44:Kari Suggs RN) Adequate Care: Yes (11/02/2016 04:44:Kari Suggs RN) Prepregnancy Weight (lb): 166 (11/02/2016 04:44:Kari Suggs RN) Prepregnancy Weight (kg): 75.5 (11/02/2016 04:44:QS system process) Height (in): 67 (11/02/2016 10:54:QS system process) Height (in): 67 (11/02/2016 10:15:QS system process) Height (in): 67 (11/02/2016 05:48:QS system process) Height (in): 67 (11/02/2016 04:55:QS system process) Height (in): 66 (11/02/2016 04:44:QS system process) ALLERGIES Medication Allergy: No (11/02/2016 04:44:Sully Ring, RN) Medication Allergies: No Known Allergies (11/02/2016) (11/02/2016 04:55:QS system process) Medication Allergies: No Known Allergies (10/07/2014) (08/26/2016 12:49:QS system process) Latex Allergy: No Latex Allergies (11/02/2016 04:44:Sully Ring, RN) COMMUNICATION Primary Language: Slovak (11/02/2016 04:44:Kari Suggs RN) Medical Tx Preferred Language: Slovak (11/02/2016 04:44:Sully Ring, RN) Communication Barrier(s): None (11/02/2016 04:44:Sully Ring, RN) DEMOGRAPHICS Address: [address] [place] [id number] (08/26/2016 12:49:QS system process) Zipcode: [address] (08/26/2016 12:49:QS system process) Home (08/26/2016 12:49:QS system process) SSN: [id number] (08/26/2016 12:49:QS system process) Next of Kin Name: NATY REDMAN (08/26/2016 12:49:QS system process) Next of Kin (08/26/2016 12:49:QS system process) Next of Kin Relationship: SPO (08/26/2016 12:49:QS system process) Date of : 1985 (08/26/2016 12:49:QS system process) Marital Status: (08/26/2016 12:49:QS system process) Sex: Female (08/26/2016 12:49:QS system process) Race: (08/26/2016 12:49:QS system process) Ethnicity: Non- or (08/26/2016 12:49:QS system process) Congregation: [employer] (08/26/2016 12:49:QS system process) DRUG AND ALCOHOL USE Alcohol: No (11/02/2016 04:44:Sully Sunshine RN) Cigarettes: Never Smoker. [id number] (11/02/2016 04:44:Sully Sunshine RN) Marijuana: No (11/02/2016 04:44:Sully Sunshine RN) Cocaine: No (11/02/2016 04:44:Sully Sunshine RN) Other Illicit Drugs: No (11/02/2016 04:44:Sully Sunshine RN) VACCINE HISTORY Influenza Vaccine: Yes (11/02/2016 04:44:Sully Sunshine RN) Influenza Date: 2016 (11/02/2016 04:44:Sully Sunshine RN) Tetanus Vaccine: Yes (11/02/2016 04:44:Sully Sunshine RN) Tdap Vaccine: Yes (11/02/2016 04:44:Sully Sunshine RN) Hepatitis B Vaccine: Yes (11/02/2016 04:44:Sully Sunshine RN) Drum Drier Operator: [facility] (11/02/2016 04:44:Sully Sunshine RN) Feeding Preference: Breast (11/02/2016 04:44:Sully Sunshine RN) Benefit of Breast Feed Discussed: Yes (11/02/2016 04:44:Sully Sunshine RN) Circumcision: No (11/02/2016 04:44:Sully Sunshine RN) Classes Attended: No (11/02/2016 04:44:Sully Sunshine RN) Tubal Ligation: No (11/02/2016 04:44:Sully Sunshine RN) Tubal Authorization Signed: N/A (11/02/2016 04:44:Sully Sunshine RN) Consent: N/A (11/02/2016 04:44:Sully Sunshine RN) Consent Signed: N/A (11/02/2016 04:44:Sully Sunshine RN) Pain Management Plans: Natural; Epidural (11/02/2016 04:44:Sully Sunshine RN) Plans for Labor and Delivery: None (11/02/2016 04:44:Sully Sunshine RN) Support Person: Mendoza Mecum (11/02/2016 04:44:Sully Sunshine RN) Support Person Relationship: (11/02/2016 04:44:Sully Sunshine RN) Cultural/Spritual Practice: No (11/02/2016 04:44:Sully Sunshine RN) Spir/Cult Dietary Needs: No (11/02/2016 04:44:Sully Sunshine RN) LIVING SITUATION/DISCHARGE PLAN Living Arrangements: House (11/02/2016 04:44:Sully Sunshine RN) Adequate Access to:: Electric; Heat; Refrigeration; Plumbing/Running water; Phone; Transportation (11/02/2016 04:44:Sully Sunshine RN) WIC Program: No (11/02/2016 04:44:Sully Sunshine RN) Discharge Supply Coordinator Person: Mendoza (11/02/2016 04:44:Sully Sunshine RN) Person to Help after Discharge: Mendoza (11/02/2016 04:44:Sully Sunshine RN) Currently Using Commun Resources: No (11/02/2016 04:44:Sully Sunshine RN) Outside Agency/[employer]: N/A (11/02/2016 04:44:Sully Sunshine RN) Car Seat for Discharge: Yes (11/02/2016 04:44:Sully Sunshine RN) Adoption Requested: No (11/02/2016 04:44:Sully Sunshine RN) Pt Contact w/ Post : N/A (11/02/2016 04:44:Sully Sunshine RN) LABS Blood Type: AB Positive (11/02/2016 04:44:Kari Suggs RN) Hemoglobin: 13.2 (11/02/2016 06:12:QS system process) Hematocrit: 37.3 (11/02/2016 06:12:QS system process) MCV: 91 (11/02/2016 06:12:QS system process) Group Beta Strep: negative (11/02/2016 04:44:Kari Suggs RN) Gonorrhea: Negative (11/02/2016 04:44:Kari Suggs RN) Chlamydia: Negative (11/02/2016 04:44:Kari Suggs RN) RPR/VDRL: Nonreactive (11/02/2016 04:44:Kari Suggs RN) HIV Results: negative (11/02/2016 04:44:Kari Suggs RN) Hepatitis B: Negative (11/02/2016 04:44:Kari Suggs RN) Rubella: Immune (11/02/2016 04:44:Kari Suggs RN) OB/PREVIOUS HISTORY Previous Procedures: Ultrasound; NST (11/02/2016 04:44:Kari Suggs RN) Previous Procedures: Ultrasound (11/02/2016 04:44:Sully Sunshine RN) Current Procedures: Ultrasound; NST (11/02/2016 04:44:Kari Suggs RN) Current Procedures: Ultrasound (11/02/2016 04:44:Sully Sunshine RN) History of Previous : No (11/02/2016 04:44:Sully Sunshine RN) History of Gestational Diabetes: No (11/02/2016 04:44:Sully Sunshine RN) History of PIH: No (11/02/2016 04:44:Sully Sunshine RN) History of Incompetent Cervix: No (11/02/2016 04:44:Sully Sunshine RN) History of Placenta Previa/Abrup: No (11/02/2016 04:44:Sully Snushine RN) History of Macrosomia: No (11/02/2016 04:44:Sully Sunshine RN) History of IUGR: No (11/02/2016 04:44:Sully Sunshine RN) History of Hemorrhage: No (11/02/2016 04:44:Sully Sunshine RN) History of Loss/Stillborn: No (11/02/2016 04:44:Sully Sunshine RN) History of : No (11/02/2016 04:44:Sully Sunshine RN) History of D (Rh) Sensitization: No (11/02/2016 04:44:Sully Sunshine RN) History Recurrent Loss/Stillborn: No (11/02/2016 04:44:Sully Sunshine RN) History Depression/PP Depression: No (11/02/2016 04:44:Sully Sunshine RN) History of Uterine Anomaly/JOANIE: No (11/02/2016 04:44:Sully Sunshine RN) History of Infertility: No (11/02/2016 04:44:Sully Sunshine RN) History of ART Treatment: No (11/02/2016 04:44:Sully Sunshine RN) History of JOANIE: No (11/02/2016 04:44:Sully Sunshine RN) Comments Obstetrical History: g1-2014, 38+2, female, , 6lb 5oz, records state she was in labor for 24 hours but then in problem list in records states that she had a precipitous delivery so that she missed her epidural, hx of pos DSR last but baby is fine g2-current , S>D as of 08/2016 (11/02/2016 04:44:Kari Suggs RN) Comments Obstetrical History: G1: G2: current (11/02/2016 04:44:Sully Sunshine RN) MEDICAL HISTORY Med Hx Diabetes: No (11/02/2016 04:44:Sully Sunshine RN) Med Hx Hypertension: No (11/02/2016 04:44:Sully Sunshine RN) Med Hx Heart Disease: No (11/02/2016 04:44:Sully Sunshine RN) Med Hx Autoimmune Disorder: No (11/02/2016 04:44:Sully Sunshine RN) Med Hx Kidney Disease/UTI: No (11/02/2016 04:44:Sully Sunshine RN) Med Hx Neurologic/Epilepsy: No (11/02/2016 04:44:Sully Sunshine RN) Med Hx Psychiatric Disorders: No (11/02/2016 04:44:Sully Sunshine RN) Med Hx Hepatitis/Liver Disease: No (11/02/2016 04:44:Sully Sunshine RN) Med Hx Varicosities/Phlebitis: No (11/02/2016 04:44:Sully Sunshine RN) Med Hx Thyroid Dysfunction: No (11/02/2016 04:44:Sully Sunshine RN) Med Hx Trauma/Violence: No (11/02/2016 04:44:Sully Sunshine RN) Med Hx Blood Transfusion: No (11/02/2016 04:44:Sully Sunshine RN) Med Hx Pulmonary (Asthma,TB): No (11/02/2016 04:44:Sully Sunshine RN) Med Hx Breast: No (11/02/2016 04:44:Sully Sunshine RN) Med Hx DCS ENGINEER Surgery: No (11/02/2016 04:44:Sully Sunshine RN) Med Hx Hospitalization/Surgery: Yes (11/02/2016 04:44:Kari Suggs RN) Med Hx Hospitalization/Surgery: No (11/02/2016 04:44:Sully Sunshine RN) Med Hx Anesthetic Complications: No (11/02/2016 04:44:Sully Sunshine RN) Med Hx Abnormal Pap Smear: No (11/02/2016 04:44:Sully Sunshine RN) Other Medical Diseases: Yes (11/02/2016 04:44:Kari Suggs RN) Other Medical Diseases: No (11/02/2016 04:44:Sully Sunshine RN) Med Hx Significant Family Hx: No (11/02/2016 04:44:Sully Sunshine RN) Details of Med/Surg Hx: childbirth, anemia, wisdom teeth. Hx of an irregularly fast heartbeat in the past-halter monitor and EKG found no abnormalities (pt states has not had this issue during this ) (11/02/2016 04:44:Sully Sunshine RN) INFECTIOUS HISTORY Inf Hx Gonorrhea: No (11/02/2016 04:44:Sully Sunshine, RN) Inf Hx Chlamydia: No (11/02/2016 04:44:Sully Sunshine, RN) Inf Hx Syphilis: No (11/02/2016 04:44:Sully Sunshine, RN) Inf Hx HIV/AIDS: No (11/02/2016 04:44:Sully Sunshine RN) Inf Hx Human Papilloma Virus: No (11/02/2016 04:44:Sully Sunshine, RN) Inf Hx Pt/Partner Genital Herpes: No (11/02/2016 04:44:Sully Sunshine RN) Inf Hx Tuberculosis/Exposure: No (11/02/2016 04:44:Sully Sunshine RN) Inf Hx Hepatitis B,C: No (11/02/2016 04:44:Sully Sunshine, RN) Inf Hx Rash or Viral Illness: No (11/02/2016 04:44:Sully Sunshine RN) Details of Infectious Hx: denies (11/02/2016 04:44:Sully Ring, RN) GENETIC HISTORY Gen Hx Age >=35 at PASCUAL: No (11/02/2016 04:44:Sully Sunshine, RN) Gen Hx Thalassemia: No (11/02/2016 04:44:Sully Sunshine RN) Gen Hx Congenital Heart Defect: No (11/02/2016 04:44:Sully Ring, RN) Gen Hx Neural Tube Defect: No (11/02/2016 04:44:Sully Sunshine RN) Gen Hx Down's Syndrome: No (11/02/2016 04:44:Sully Sunshine RN) Gen Hx Timbo-Sachs: No (11/02/2016 04:44:Sully Sunshine RN) Gen Hx Sulma: No (11/02/2016 04:44:Sully Sunshine RN) Gen Hx Familial Dysautonomia: No (11/02/2016 04:44:Sully Sunshine RN) Gen Hx Sickle Cell Disease/Trait: No (11/02/2016 04:44:Sully Sunshine RN) Gen Hx Hemophilia/Blood Disorder: No (11/02/2016 04:44:Sully Sunshine RN) Gen Hx Muscular Dystrophy: No (11/02/2016 04:44:Sully Sunshine RN) Gen Hx Cystic Fibrosis: No (11/02/2016 04:44:Sully Sunshine RN) Gen Hx Huntingtons Chorea: No (11/02/2016 04:44:Sully Sunshine RN) Gen Hx Mental Retardation/Autism: No (11/02/2016 04:44:Sully Sunshine RN) Gen Hx Tested for Fragile X: No (11/02/2016 04:44:Sully Sunshine RN) Gen Hx Other Inher/Chromosomal: No (11/02/2016 04:44:Sully uSnshine RN) Gen Hx Maternal Metabolic DO: No (11/02/2016 04:44:Sully Sunshine RN) Gen Hx Pt Father or FOB Defect: No (11/02/2016 04:44:Sully Sunshine RN) Gen Hx Other Genetic History: No (11/02/2016 04:44:Sully Sunshine RN) Gen Hx Drugs/Meds since LMP: Yes (11/02/2016 04:44:Sully Sunshine RN) Gen Hx Medications: PNV, iron, antacids, tylenol (11/02/2016 04:44:Sully Sunshine RN) Details of Genetic History: FOB brother has autism (11/02/2016 04:44:Sully Sunshine RN)
--- NOTE | 2016-11-02 22:46 | L&D Flow Sheet ---
LD Flowsheet Datetime Report Generated by CPN: 11/02/2016 22:45 Datetime: 11/02/2016 07:26 Temperature (C): 36.5 (QS system process) LaborFlag: Antepartum (QS system process) Datetime: 11/02/2016 07:10 LaborFlag: Antepartum (QS system process) Datetime: 11/02/2016 07:05 LaborFlag: Antepartum (QS system process) Datetime: 11/02/2016 07:01 LaborFlag: Antepartum (QS system process) Datetime: 11/02/2016 07:00 LaborFlag: Antepartum (QS system process) Datetime: 11/02/2016 06:55 LaborFlag: Antepartum (QS system process) Datetime: 11/02/2016 06:50 LaborFlag: Antepartum (QS system process) Datetime: 11/02/2016 06:48 LaborFlag: Antepartum (QS system process) Datetime: 11/02/2016 06:45 LaborFlag: Antepartum (QS system process) Datetime: 11/02/2016 06:40 LaborFlag: Antepartum (QS system process) Datetime: 11/02/2016 06:37 LaborFlag: Antepartum (QS system process) Datetime: 11/02/2016 06:35 LaborFlag: Antepartum (QS system process) Datetime: 11/02/2016 06:30 LaborFlag: Antepartum (QS system process) Datetime: 11/02/2016 06:00 LaborFlag: Antepartum (QS system process)
--- NOTE | 2016-11-02 22:46 | L&D Current Admission ---
Current Admit Datetime Report Generated by CPN: 11/02/2016 22:45 ADMISSION INFORMATION Current Admit Date/Time: 11/02/2016 05:38 (11/02/2016 05:55:Sully Sunshine RN) Reason for Admission: Onset of Labor (11/02/2016 05:55:Sully Sunshine RN) Chief Complaint: Contractions (11/02/2016 05:55:Sully Sunshine RN) Chief Complaint: Contractions (11/02/2016 05:00:Sully Sunshine RN) Medications During : Ferrous Sulfate (Iron); Vitamin (11/02/2016 05:55:Sully Sunshine RN) EGA per Dates: 38.3 (11/02/2016 05:55:QS system process) Method of Arrival: Wheelchair (11/02/2016 05:55:Sully Sunshine RN) Admitted From: Home (11/02/2016 05:55:Sully Sunshine RN) Reason for Induction: Not Applicable (11/02/2016 05:55:Sully Sunshine RN) Records Available: Yes (11/02/2016 05:55:Sully Sunshine RN) General Admission Information: Reviewed; Updated (11/02/2016 05:55:Sully Sunshine RN) General Admission Reviewed By: Rosalie Sunshine RN (11/02/2016 05:55:Sully Sunshine RN) BELONGINGS/ADVANCED DIRECTIVES Other Belongings: See [facility] valuables form (11/02/2016 05:55:Sully Sunshine RN) Disposition of Belongings: Kept with Patient (11/02/2016 05:55:Sully Sunshine RN) Advance Direct for Healthcare: No, and Wants No Information (11/02/2016 05:55:Sully Sunshine RN) Durable Power of Hospice Home Health Aide: No (11/02/2016 05:55:Sully Sunshine RN) Living Will: No (11/02/2016 05:55:Sully Sunshine RN) Organ Donor: No (11/02/2016 05:55:Sully Sunshine RN) Pt Rights Information Given: Yes (11/02/2016 05:55:Sully Sunshine RN) Pt Understands Pt Rights: Yes (11/02/2016 05:55:Sully Sunshine RN) LEARNING ASSESSMENT Knowledge Level: Understands L_D Process; Understands Diagnosis (11/02/2016 05:55:Sully Sunshine RN) Barriers to Learning: None (11/02/2016 05:55:Sully Sunshine RN) Learning Readiness: Motivated (11/02/2016 05:55:Sully Sunshine RN) Learns Best By: 1 to 1 Instruction; Videos (11/02/2016 05:55:Sully Sunshine RN) Learning Needs: Labor and Delivery Process (11/02/2016 05:55:Sully Sunshine RN) DOMESTIC VIOLANCE SCREENING Dom Viol Threatened/Hurt: No (11/02/2016 05:55:Sully Sunshine RN) Hx of Abuse/Neglect past 2yrs: No (11/02/2016 05:55:Sully Sunshine RN) Feel Unsafe Going Home: No (11/02/2016 05:55:Sully Sunshine RN) Addt'l Observ Indicating Abuse: No (11/02/2016 05:55:Sully Sunshine RN) Reason Unable to Complete Screen: N/A, Screen Completed (11/02/2016 05:55:Sully Sunshine RN) Considered Personal Harm/Suicide: No (11/02/2016 05:55:Sully Sunshine RN) NUTRITIONAL/FUNCTIONAL SCREENING Problem with Appetite >5 Days: No (11/02/2016 05:55:Sully Sunshine RN) Chew/Swallow Difficulties: No (11/02/2016 05:55:Sully Sunshine RN) Inappropriate Wt Gain/Loss: No (11/02/2016 05:55:Sully Sunshine RN) Presence Skin Breakdown/Ulcer: No (11/02/2016 05:55:Sully Sunshine RN) Special Diet: No (11/02/2016 05:55:Sully Sunshine RN) Pt Requests Hoe Worker Visit: No (11/02/2016 05:55:Sulyl Sunshine RN) Hx of Any of the Following?: N/A (11/02/2016 05:55:Sully Sunshine RN) New Diagnosis of: N/A (11/02/2016 05:55:Sully Sunshine RN) Requires Assist w/Ambulation: No (11/02/2016 05:55:Sully Sunshine RN) Uses Assist Device to Ambulate: No (11/02/2016 05:55:Sully Sunshine RN) Pt Requires Help w/ADL's: No (11/02/2016 05:55:Sully Sunshine RN)
--- NOTE | 2016-11-02 22:46 | L&D Discharge Summary ---
OB Discharge Summary Datetime Report Generated by CPN: 11/02/2016 22:45 DISCHARGE DIAGNOSIS Gestation: 38.3 Number of Babies in Womb: 1 Parity: 1
--- NOTE | 2016-11-02 22:46 | L&D General Admission ---
General Admit Datetime Report Generated by CPN: 11/02/2016 22:45 INFORMATION Patient Age: 31 (08/26/2016 12:49:QS system process) EDC: 11/13/2016 00:00 (11/02/2016 04:44:Kari Suggs RN) : 2 (11/02/2016 04:44:Kari Suggs RN) Para: 1 (11/02/2016 04:44:Kari Suggs RN) Term: 1 (11/02/2016 04:44:Kari Suggs RN) : 0 (11/02/2016 04:44:Kari Suggs RN) Spontaneous Abortions: 0 (11/02/2016 04:44:Kari Suggs RN) Induced Abortions: 0 (11/02/2016 04:44:Kari Suggs RN) Livin (11/02/2016 04:44:Kari Suggs RN) Cesareans: 0 (11/02/2016 04:44:Sully Sunshine RN) VBACs: 0 (11/02/2016 04:44:Sully Sunshine RN) Ectopic: 0 (11/02/2016 04:44:Sully Sunshine RN) Multiple Births: 0 (11/02/2016 04:44:Sully Sunshine RN) Baby, Number in Womb: 1 (11/02/2016 04:44:Kari Suggs RN) CARE [facility] Texture [facility]: [facility] (11/02/2016 04:44:Kari Suggs RN) Adequate Care: Yes (11/02/2016 04:44:Kari Suggs RN) Prepregnancy Weight (lb): 166 (11/02/2016 04:44:Kari Suggs RN) Prepregnancy Weight (kg): 75.5 (11/02/2016 04:44:QS system process) Height (in): 67 (11/02/2016 10:54:QS system process) Height (in): 67 (11/02/2016 10:15:QS system process) Height (in): 67 (11/02/2016 05:48:QS system process) Height (in): 67 (11/02/2016 04:55:QS system process) Height (in): 66 (11/02/2016 04:44:QS system process) ALLERGIES Medication Allergy: No (11/02/2016 04:44:Sully Ring, RN) Medication Allergies: No Known Allergies (11/02/2016) (11/02/2016 04:55:QS system process) Medication Allergies: No Known Allergies (10/07/2014) (08/26/2016 12:49:QS system process) Latex Allergy: No Latex Allergies (11/02/2016 04:44:Sully Ring, RN) COMMUNICATION Primary Language: Malagasy (11/02/2016 04:44:Kari Suggs RN) Medical Tx Preferred Language: Malagasy (11/02/2016 04:44:Sully Ring, RN) Communication Barrier(s): None (11/02/2016 04:44:Sully Ring, RN) DEMOGRAPHICS Address: [address] [place] [id number] (08/26/2016 12:49:QS system process) Zipcode: [id number] (08/26/2016 12:49:QS system process) Home (08/26/2016 12:49:QS system process) SSN: [id number] (08/26/2016 12:49:QS system process) Next of Kin Name: NATY REDMAN (08/26/2016 12:49:QS system process) Next of Kin (08/26/2016 12:49:QS system process) Next of Kin Relationship: SPO (08/26/2016 12:49:QS system process) Date of : 1985 (08/26/2016 12:49:QS system process) Marital Status: (08/26/2016 12:49:QS system process) Sex: Female (08/26/2016 12:49:QS system process) Race: (08/26/2016 12:49:QS system process) Ethnicity: Non- or (08/26/2016 12:49:QS system process) Druze: Religion (08/26/2016 12:49:QS system process) DRUG AND ALCOHOL USE Alcohol: No (11/02/2016 04:44:Sully Sunshine RN) Cigarettes: Never Smoker. [id number] (11/02/2016 04:44:Sully Sunshine RN) Marijuana: No (11/02/2016 04:44:Sully Sunshine RN) Cocaine: No (11/02/2016 04:44:Sully Sunshine RN) Other Illicit Drugs: No (11/02/2016 04:44:Sully Sunshine RN) VACCINE HISTORY Influenza Vaccine: Yes (11/02/2016 04:44:Sully Sunshine RN) Influenza Date: 2016 (11/02/2016 04:44:Sully Sunshine RN) Tetanus Vaccine: Yes (11/02/2016 04:44:Sully Sunshine RN) Tdap Vaccine: Yes (11/02/2016 04:44:Sully Sunshine RN) Hepatitis B Vaccine: Yes (11/02/2016 04:44:Sully Sunshine RN) Supervisor Payroll: [facility] (11/02/2016 04:44:Sully Sunshine RN) Feeding Preference: Breast (11/02/2016 04:44:Sully Sunshine RN) Benefit of Breast Feed Discussed: Yes (11/02/2016 04:44:Sully Sunshine RN) Circumcision: No (11/02/2016 04:44:Sully Sunshine RN) Classes Attended: No (11/02/2016 04:44:Sully Sunshine RN) Tubal Ligation: No (11/02/2016 04:44:Sully Sunshine RN) Tubal Authorization Signed: N/A (11/02/2016 04:44:Sully Sunshine RN) Consent: N/A (11/02/2016 04:44:Sully Sunshine RN) Consent Signed: N/A (11/02/2016 04:44:Sully Sunshine RN) Pain Management Plans: Natural; Epidural (11/02/2016 04:44:Sully Sunshine RN) Plans for Labor and Delivery: None (11/02/2016 04:44:Sully Sunshine RN) Support Person: Mendoza Mecum (11/02/2016 04:44:Sully Sunshine RN) Support Person Relationship: (11/02/2016 04:44:Sully Sunshine RN) Cultural/Spritual Practice: No (11/02/2016 04:44:Sully Sunshine RN) Spir/Cult Dietary Needs: No (11/02/2016 04:44:Sully Sunshine RN) LIVING SITUATION/DISCHARGE PLAN Living Arrangements: House (11/02/2016 04:44:Sully Sunshine RN) Adequate Access to:: Electric; Heat; Refrigeration; Plumbing/Running water; Phone; Transportation (11/02/2016 04:44:Sully Sunshine RN) WIC Program: No (11/02/2016 04:44:Sully Sunshine RN) Discharge Bread Jockey Person: Mendoza (11/02/2016 04:44:Sully Sunshine RN) Person to Help after Discharge: Mendoza (11/02/2016 04:44:Sully Sunshine RN) Currently Using Commun Resources: No (11/02/2016 04:44:Sully Sunshine RN) Outside Agency/Net Wpf Developer: N/A (11/02/2016 04:44:Sully Sunshine RN) Car Seat for Discharge: Yes (11/02/2016 04:44:Sully Sunshine RN) Adoption Requested: No (11/02/2016 04:44:Sully Sunshine RN) Pt Contact w/ Post : N/A (11/02/2016 04:44:Sully Sunshine RN) LABS Blood Type: AB Positive (11/02/2016 04:44:Kari Suggs RN) Hemoglobin: 13.2 (11/02/2016 06:12:QS system process) Hematocrit: 37.3 (11/02/2016 06:12:QS system process) MCV: 91 (11/02/2016 06:12:QS system process) Group Beta Strep: negative (11/02/2016 04:44:Kari Suggs RN) Gonorrhea: Negative (11/02/2016 04:44:Kari Suggs RN) Chlamydia: Negative (11/02/2016 04:44:Kari Suggs RN) RPR/VDRL: Nonreactive (11/02/2016 04:44:Kari Suggs RN) HIV Results: negative (11/02/2016 04:44:Kari Sgugs RN) Hepatitis B: Negative (11/02/2016 04:44:Kari Suggs RN) Rubella: Immune (11/02/2016 04:44:Kari Suggs RN) OB/PREVIOUS HISTORY Previous Procedures: Ultrasound; NST (11/02/2016 04:44:Kari Suggs RN) Previous Procedures: Ultrasound (11/02/2016 04:44:Sully Sunshine RN) Current Procedures: Ultrasound; NST (11/02/2016 04:44:Kari Suggs RN) Current Procedures: Ultrasound (11/02/2016 04:44:Sully Sunshine RN) History of Previous : No (11/02/2016 04:44:Sully Sunshine RN) History of Gestational Diabetes: No (11/02/2016 04:44:Sully Sunshine RN) History of PIH: No (11/02/2016 04:44:Sully Sunshine RN) History of Incompetent Cervix: No (11/02/2016 04:44:Sully Sunshine RN) History of Placenta Previa/Abrup: No (11/02/2016 04:44:Sully Sunshine RN) History of Macrosomia: No (11/02/2016 04:44:Sully Sunshine RN) History of IUGR: No (11/02/2016 04:44:Sully Sunshine RN) History of Hemorrhage: No (11/02/2016 04:44:Sully Sunshine RN) History of Loss/Stillborn: No (11/02/2016 04:44:Sully Sunshine RN) History of : No (11/02/2016 04:44:Sully Sunshine RN) History of D (Rh) Sensitization: No (11/02/2016 04:44:Sully Sunshine RN) History Recurrent Loss/Stillborn: No (11/02/2016 04:44:Sully Sunshine RN) History Depression/PP Depression: No (11/02/2016 04:44:Sully Sunshine RN) History of Uterine Anomaly/JOANIE: No (11/02/2016 04:44:Sully Sunshine RN) History of Infertility: No (11/02/2016 04:44:Sully Sunshine RN) History of ART Treatment: No (11/02/2016 04:44:Sully Sunshine RN) History of JOANIE: No (11/02/2016 04:44:Sully Sunshine RN) Comments Obstetrical History: g1-2014, 38+2, female, , 6lb 5oz, records state she was in labor for 24 hours but then in problem list in records states that she had a precipitous delivery so that she missed her epidural, hx of pos DSR last but baby is fine g2-current , S>D as of 08/2016 (11/02/2016 04:44:Kari Suggs RN) Comments Obstetrical History: G1: G2: current (11/02/2016 04:44:Sully Sunshine RN) MEDICAL HISTORY Med Hx Diabetes: No (11/02/2016 04:44:Sully Sunshine RN) Med Hx Hypertension: No (11/02/2016 04:44:Sully Sunshine RN) Med Hx Heart Disease: No (11/02/2016 04:44:Sully Sunshine RN) Med Hx Autoimmune Disorder: No (11/02/2016 04:44:Sully Sunshine RN) Med Hx Kidney Disease/UTI: No (11/02/2016 04:44:Sully Sunshine RN) Med Hx Neurologic/Epilepsy: No (11/02/2016 04:44:Sully Sunshine RN) Med Hx Psychiatric Disorders: No (11/02/2016 04:44:Sully Sunshine RN) Med Hx Hepatitis/Liver Disease: No (11/02/2016 04:44:Sully Sunshine RN) Med Hx Varicosities/Phlebitis: No (11/02/2016 04:44:Sully Sunshine RN) Med Hx Thyroid Dysfunction: No (11/02/2016 04:44:Sully Sunshine RN) Med Hx Trauma/Violence: No (11/02/2016 04:44:Sully Sunshine RN) Med Hx Blood Transfusion: No (11/02/2016 04:44:Sully Sunshine RN) Med Hx Pulmonary (Asthma,TB): No (11/02/2016 04:44:Sully Sunshine RN) Med Hx Breast: No (11/02/2016 04:44:Sully Sunshine RN) Med Hx TAXATION ACCOUNTANT Surgery: No (11/02/2016 04:44:Sully Sunshine RN) Med Hx Hospitalization/Surgery: Yes (11/02/2016 04:44:Kari Suggs RN) Med Hx Hospitalization/Surgery: No (11/02/2016 04:44:Sully Sunshine RN) Med Hx Anesthetic Complications: No (11/02/2016 04:44:Sully Sunshine RN) Med Hx Abnormal Pap Smear: No (11/02/2016 04:44:Sully Sunshine RN) Other Medical Diseases: Yes (11/02/2016 04:44:Kari Suggs RN) Other Medical Diseases: No (11/02/2016 04:44:Sully Sunshine RN) Med Hx Significant Family Hx: No (11/02/2016 04:44:Sully Sunshine RN) Details of Med/Surg Hx: childbirth, anemia, wisdom teeth. Hx of an irregularly fast heartbeat in the past-halter monitor and EKG found no abnormalities (pt states has not had this issue during this ) (11/02/2016 04:44:Sully Sunshine RN) INFECTIOUS HISTORY Inf Hx Gonorrhea: No (11/02/2016 04:44:Sully Sunshine, RN) Inf Hx Chlamydia: No (11/02/2016 04:44:Sully Sunshine, RN) Inf Hx Syphilis: No (11/02/2016 04:44:Sully Sunshine, RN) Inf Hx HIV/AIDS: No (11/02/2016 04:44:Sully Sunshine RN) Inf Hx Human Papilloma Virus: No (11/02/2016 04:44:Sully Sunshine, RN) Inf Hx Pt/Partner Genital Herpes: No (11/02/2016 04:44:Sully Sunshine RN) Inf Hx Tuberculosis/Exposure: No (11/02/2016 04:44:Sully Sunshine RN) Inf Hx Hepatitis B,C: No (11/02/2016 04:44:Sully Sunshine, RN) Inf Hx Rash or Viral Illness: No (11/02/2016 04:44:Sully Sunshine RN) Details of Infectious Hx: denies (11/02/2016 04:44:Sully Ring, RN) GENETIC HISTORY Gen Hx Age >=35 at PASCUAL: No (11/02/2016 04:44:Sully Sunshine, RN) Gen Hx Thalassemia: No (11/02/2016 04:44:Sully Sunshine RN) Gen Hx Congenital Heart Defect: No (11/02/2016 04:44:Sully Ring, RN) Gen Hx Neural Tube Defect: No (11/02/2016 04:44:Sully Sunshine RN) Gen Hx Down's Syndrome: No (11/02/2016 04:44:Sully Sunshine RN) Gen Hx Timbo-Sachs: No (11/02/2016 04:44:Sully Sunshine RN) Gen Hx Sulma: No (11/02/2016 04:44:Sully Sunshine RN) Gen Hx Familial Dysautonomia: No (11/02/2016 04:44:Sully Sunshine RN) Gen Hx Sickle Cell Disease/Trait: No (11/02/2016 04:44:Sully Sunshine RN) Gen Hx Hemophilia/Blood Disorder: No (11/02/2016 04:44:Sully Sunshine RN) Gen Hx Muscular Dystrophy: No (11/02/2016 04:44:Sully Sunshine RN) Gen Hx Cystic Fibrosis: No (11/02/2016 04:44:Sully Sunshine RN) Gen Hx Huntingtons Chorea: No (11/02/2016 04:44:Sully Sunshine RN) Gen Hx Mental Retardation/Autism: No (11/02/2016 04:44:Sully Sunshine RN) Gen Hx Tested for Fragile X: No (11/02/2016 04:44:Sully Sunshine RN) Gen Hx Other Inher/Chromosomal: No (11/02/2016 04:44:Sully Sunshine RN) Gen Hx Maternal Metabolic DO: No (11/02/2016 04:44:Sully Sunshine RN) Gen Hx Pt Father or FOB Defect: No (11/02/2016 04:44:Sully Sunshine RN) Gen Hx Other Genetic History: No (11/02/2016 04:44:Sully Sunshine RN) Gen Hx Drugs/Meds since LMP: Yes (11/02/2016 04:44:Sully Sunshine RN) Gen Hx Medications: PNV, iron, antacids, tylenol (11/02/2016 04:44:Sully Sunshine RN) Details of Genetic History: FOB brother has autism (11/02/2016 04:44:Sully Sunshine RN)
--- NOTE | 2016-11-03 04:46 | L&D Current Admission ---
Current Admit Datetime Report Generated by CPN: 11/03/2016 04:45 ADMISSION INFORMATION Current Admit Date/Time: 11/02/2016 05:38 (11/02/2016 05:55:Sully Sunshine RN) Reason for Admission: Onset of Labor (11/02/2016 05:55:Sully Sunshine RN) Chief Complaint: Contractions (11/02/2016 05:55:Sully Sunshine RN) Chief Complaint: Contractions (11/02/2016 05:00:Sully Sunshine RN) Medications During : Ferrous Sulfate (Iron); Vitamin (11/02/2016 05:55:Sully Sunshine RN) EGA per Dates: 38.3 (11/02/2016 05:55:QS system process) Method of Arrival: Wheelchair (11/02/2016 05:55:Sully Sunshine RN) Admitted From: Home (11/02/2016 05:55:Sully Sunshine RN) Reason for Induction: Not Applicable (11/02/2016 05:55:Sully Sunshine RN) Records Available: Yes (11/02/2016 05:55:Sully Sunshine RN) General Admission Information: Reviewed; Updated (11/02/2016 05:55:Sully Sunshine RN) General Admission Reviewed By: Rosalie Sunshine RN (11/02/2016 05:55:Sully Sunshine RN) BELONGINGS/ADVANCED DIRECTIVES Other Belongings: See [facility] valuables form (11/02/2016 05:55:Sully Sunshine RN) Disposition of Belongings: Kept with Patient (11/02/2016 05:55:Sully Sunshine RN) Advance Direct for Healthcare: No, and Wants No Information (11/02/2016 05:55:Sully Sunshine RN) Durable Power of Voting Machine Repairer: No (11/02/2016 05:55:Sully Sunshine RN) Living Will: No (11/02/2016 05:55:Sully Sunshine RN) Organ Donor: No (11/02/2016 05:55:Sully Sunshine RN) Pt Rights Information Given: Yes (11/02/2016 05:55:Sully Sunshine RN) Pt Understands Pt Rights: Yes (11/02/2016 05:55:Sully Sunshine RN) LEARNING ASSESSMENT Knowledge Level: Understands L_D Process; Understands Diagnosis (11/02/2016 05:55:Sully Sunshine RN) Barriers to Learning: None (11/02/2016 05:55:Sully Sunshine RN) Learning Readiness: Motivated (11/02/2016 05:55:Sully Susnhine RN) Learns Best By: 1 to 1 Instruction; Videos (11/02/2016 05:55:Sully Sunshine RN) Learning Needs: Labor and Delivery Process (11/02/2016 05:55:Sully Sunshine RN) DOMESTIC VIOLANCE SCREENING Dom Viol Threatened/Hurt: No (11/02/2016 05:55:Sully Sunsihne RN) Hx of Abuse/Neglect past 2yrs: No (11/02/2016 05:55:Sully Sunshine RN) Feel Unsafe Going Home: No (11/02/2016 05:55:Sully Sunshine RN) Addt'l Observ Indicating Abuse: No (11/02/2016 05:55:Sully Sunshine RN) Reason Unable to Complete Screen: N/A, Screen Completed (11/02/2016 05:55:Sully Sunshine RN) Considered Personal Harm/Suicide: No (11/02/2016 05:55:Sully Sunshine RN) NUTRITIONAL/FUNCTIONAL SCREENING Problem with Appetite >5 Days: No (11/02/2016 05:55:Sully Sunshine RN) Chew/Swallow Difficulties: No (11/02/2016 05:55:Sully Sunshine RN) Inappropriate Wt Gain/Loss: No (11/02/2016 05:55:Sully Sunshine RN) Presence Skin Breakdown/Ulcer: No (11/02/2016 05:55:Sully Sunshine RN) Special Diet: No (11/02/2016 05:55:Sully Sunshine RN) Pt Requests Truck Operator Visit: No (11/02/2016 05:55:Sully Sunshine RN) Hx of Any of the Following?: N/A (11/02/2016 05:55:Sully Sunshine RN) New Diagnosis of: N/A (11/02/2016 05:55:Sully Sunshine RN) Requires Assist w/Ambulation: No (11/02/2016 05:55:Sully Sunshine RN) Uses Assist Device to Ambulate: No (11/02/2016 05:55:Sully Sunshine RN) Pt Requires Help w/ADL's: No (11/02/2016 05:55:Sully Sunshine RN)
--- NOTE | 2016-11-03 04:46 | L&D Discharge Summary ---
OB Discharge Summary Datetime Report Generated by CPN: 11/03/2016 04:45 DISCHARGE DIAGNOSIS Gestation: 38.3 Number of Babies in Womb: 1 Parity: 1
--- NOTE | 2016-11-03 04:46 | L&D Admission Assessment ---
LD ADM ASMT Datetime Report Generated by CPN: 11/03/2016 04:45 PATIENT ASSESSMENT Assessment Type: Triage (11/02/2016 05:00:Sully Ring, RN) WEIGHT Weight (lb): 194 (11/02/2016 10:54:QS system process) Weight (lb): 194 (11/02/2016 10:15:QS system process) Weight (lb): 194 (11/02/2016 05:48:QS system process) Weight (lb): 194 (11/02/2016 04:55:QS system process) Weight (kg): 88.2 (11/02/2016 10:54:QS system process) Weight (kg): 88.2 (11/02/2016 10:15:QS system process) Weight (kg): 88.2 (11/02/2016 05:48:QS system process) Weight (kg): 88.2 (11/02/2016 04:55:QS system process) Total Wt Gain (lb): 28 (11/02/2016 10:54:QS system process) Total Wt Gain (lb): 28 (11/02/2016 10:15:QS system process) Total Wt Gain (lb): 28 (11/02/2016 05:48:QS system process) Total Wt Gain (lb): 28 (11/02/2016 04:55:QS system process) Wt Gain (kg): 12.5 (11/02/2016 10:54:QS system process) Wt Gain (kg): 12.5 (11/02/2016 10:15:QS system process) Wt Gain (kg): 12.5 (11/02/2016 05:48:QS system process) Wt Gain (kg): 12.5 (11/02/2016 04:55:QS system process) BMI: 30.4 (11/02/2016 10:54:QS system process) BMI: 30.4 (11/02/2016 10:15:QS system process) BMI: 30.4 (11/02/2016 05:48:QS system process) BMI: 31.3 (11/02/2016 04:55:QS system process) PAIN Pain Scale: 1 (11/02/2016 07:52:Meg Bishop RN) Pain Scale: 2 (11/02/2016 05:00:Sully Sunshine RN) Pain Presence: Constant (11/02/2016 07:52:Meg Bishop RN) Pain Presence: Intermittent (11/02/2016 05:00:Sully Sunshine RN) Pain Type: Burning (11/02/2016 07:52:Meg Bishop RN) Pain Type: Contraction (11/02/2016 05:00:Sully Sunshine RN) Pain Location: Perineum (11/02/2016 07:52:Meg Bishop RN) Pain Location: Abdomen; Back; Perineum (11/02/2016 05:00:Sully Sunshine RN) Pain Goal: 1 (11/02/2016 05:00:Sully Sunshine RN) Pain Related to Contraction: Yes (11/02/2016 05:00:Sully Sunshine RN) CONTRACTIONS Frequency (min): 2-3 (11/02/2016 07:45:Meg Bishop RN) Frequency (min): 2 (11/02/2016 07:30:Meg Bishop RN) Frequency (min): 2-4 (11/02/2016 07:15:Meg Bishop RN) Frequency (min): 1.5-3 (11/02/2016 07:00:Sully Sunshine RN) Frequency (min): 1.5-3 (11/02/2016 06:30:Sully Sunshine RN) Frequency (min): 1.5-3.5 (11/02/2016 06:00:Sully Sunshine RN) Frequency (min): every 4-5 minutes per pt (11/02/2016 05:00:Sully Ring, RN) Duration (sec): 60-70 (11/02/2016 07:45:Meg Bishop RN) Duration (sec): 60-70 (11/02/2016 07:30:Meg Bishop, RN) Duration (sec): 50-80 (11/02/2016 07:15:Meg Bishop, RN) Duration (sec): 40-90 (11/02/2016 07:00:Sully Ring, RN) Duration (sec): 50-90 (11/02/2016 06:30:Sully Ring, RN) Duration (sec): 40-80 (11/02/2016 06:00:Sully Ring, RN) Quality: Strong (11/02/2016 07:45:Meg Bishop RN) Quality: Strong (11/02/2016 07:30:Meg Bishop RN) Quality: Moderate to Strong (11/02/2016 07:15:Meg Bishop RN) Quality: Moderate to Strong (11/02/2016 07:00:Sully Sunshine, RN) Quality: Moderate to Strong (11/02/2016 06:30:Sully Ring, RN) Quality: Moderate to Strong (11/02/2016 06:00:Sully Ring, RN) Resting Tone [place]: Relaxed (11/02/2016 07:45:Meg Bishop RN) Resting Tone [place] [employer]: Relaxed (11/02/2016 07:30:Meg Bishop RN) Resting Tone [place] [employer]: Relaxed (11/02/2016 07:15:Meg Bishop RN) Resting Tone [place] [employer]: Relaxed (11/02/2016 07:00:Sully Ring, RN) Resting Tone [employer] [employer]: Relaxed (11/02/2016 06:30:Sully Ring, RN) Resting Tone [employer]: Relaxed (11/02/2016 06:00:Sully Ring, RN) VAGINAL EXAM Dilatation (cm): 10.0 (11/02/2016 07:40:Meg Bishop RN) Dilatation (cm): 9.5 (11/02/2016 07:33:Meg Bishop RN) Dilatation (cm): 8.5 (11/02/2016 06:52:Sully Sunshine RN) Dilatation (cm): 6.5 (11/02/2016 06:20:Sully Sunshine RN) Dilatation (cm): 4.0 (11/02/2016 05:06:Sully Sunshine RN) Effacement (%): 100 (11/02/2016 07:40:Meg Bishop RN) Effacement (%): 90 (11/02/2016 07:33:Meg Bishop RN) Effacement (%): 90 (11/02/2016 06:52:Sully Sunshine RN) Effacement (%): 90 (11/02/2016 06:20:Sully Sunshine RN) Effacement (%): 80 (11/02/2016 05:06:Sully Sunshine RN) Station: 3 (11/02/2016 07:40:Meg Bishop RN) Station: -1 (11/02/2016 06:52:Sully Sunshine RN) Station: -2 (11/02/2016 06:20:Sully Sunshine RN) Station: -2 (11/02/2016 05:06:Sully Sunshine RN) Membranes Status: Ruptured (11/02/2016 06:20:Sully Sunshine RN) Membranes Status: Intact (11/02/2016 05:00:Sully Sunshine RN) Membranes Rupture D/ (11/02/2016 04:44:Sully Sunshine RN) ROM Method: Artificial (11/02/2016 06:20:Sully Sunshine RN) Amniotic Fluid Color: Clear (11/02/2016 06:20:Sully Sunshine RN) Amniotic Fluid Amount: Moderate (11/02/2016 06:20:Sully Ring, RN) Amniotic Fluid Odor: Normal (11/02/2016 04:44:Meg Bishop, RN) NEURO Level of Consciousness: Fully Conscious (11/02/2016 05:00:Sully Ring, RN) DTR's/Clonus: DTRs 2+; No Clonus (11/02/2016 05:00:Sully Ring, RN) Headache: Denies (11/02/2016 05:00:Sully Ring, RN) Dizziness: No (11/02/2016 05:00:Sully Ring, RN) Blurred Vision: No (11/02/2016 05:00:Sully Ring, RN) Extremity Numbness/Tingling : None (11/02/2016 05:00:Sully Ring, RN) Extremity Movement: Full Range of Motion (11/02/2016 05:00:Sully Ring, RN) CARDIOVASCULAR Heart Rhythm: Regular (11/02/2016 05:00:Sully Ring, RN) Nailbeds: [place] (11/02/2016 05:00:Sully Ring, RN) Capillary Refill: Less than 3 Seconds (11/02/2016 05:00:Sully Sunshine RN) Lower Extremities Edema: None (11/02/2016 05:00:Sully Sunshine RN) Upper Extremities Edema: None (11/02/2016 05:00:Sully Sunshine RN) Facial Edema: None (11/02/2016 05:00:Sully Sunshine RN) Aure's Sign Left Leg: Negative (11/02/2016 05:00:Sully Sunshine RN) Aure's Sign Right Leg: Negative (11/02/2016 05:00:Sully Sunshine RN) DVT RISK ASSESSMENT DVT Risk Age: Age less than 41 years (11/02/2016 05:00:Sully Sunshine RN) DVT Risk BMI: BMI 31 to 40 (11/02/2016 05:00:Sully Sunshine RN) DVT Risk Surgery: History of Prior Major Surgery (Annotations: [place] teeth removal in 2005) (11/02/2016 05:00:Sully Sunshine RN) DVT Risk Other: Women Only- or (<1 month) (11/02/2016 05:00:Sully Sunshine RN) DVT Risk Total: 3 (11/02/2016 05:00:QS system process) DVT Risk Text: High Risk (20-40%)- Consider stockings, compresssion device, pharmacological therapy per hospital policy (11/02/2016 05:00:QS system process) RESPIRATORY Respiratory Effort: Unlabored; Regular Rhythm; Equal Expansion (11/02/2016 05:00:Sully Ring, RN) Breath Sounds, Left: Clear and Equal (11/02/2016 05:00:Sully Ring, RN) Breath Sounds, Right: Clear and Equal (11/02/2016 05:00:Sully Ring, RN) Cough Productivity: None (11/02/2016 05:00:Sully Ring, RN) GASTROINTESTINAL Nausea/Vomiting: Denies (11/02/2016 05:00:Sully Ring, RN) Bowel Sounds: Normoactive; All Quadrants (11/02/2016 05:00:Sully Ring, RN) RUQ Epigastric Pain: Denies (11/02/2016 05:00:Sully Ring, RN) Bowel Patterns: Soft, Formed Stool (11/02/2016 05:00:Sully Ring, RN) Hemorrhoids: None (11/02/2016 05:00:Sully Ring, RN) Diet Type: Regular diet (11/02/2016 05:00:Sully Ring, RN) Last Meal: 11/01/2016 19:00 (11/02/2016 05:00:Sully Ring, RN) GENITOURINARY Bladder: Nondistended (11/02/2016 05:00:Sully Ring, RN) Frequency of Urination: No (11/02/2016 05:00:Sully Ring, RN) Urination Burning: No (11/02/2016 05:00:Sully Ring, RN) CVA Tenderness: No (11/02/2016 05:00:Sully Ring, RN) Vaginal Bleeding: None (11/02/2016 05:00:Sully Ring, RN) Vaginal Discharge Amount: None (11/02/2016 05:00:Sully Ring, RN) Vaginal Discharge Color: N/A (11/02/2016 05:00:Sully Ring, RN) Vaginal Discharge Character: None (11/02/2016 05:00:Sully Ring, RN) INTEGUMENTARY Skin Color: Normal for Race (11/02/2016 05:00:Sully Ring, RN) Skin Temperature: Cool (11/02/2016 05:00:Sully Ring, RN) Skin Moisture: Dry (11/02/2016 05:00:Sully Ring, RN) Body Piercings/Tattoos: ears (11/02/2016 05:00:Sully Ring, RN) HARPER SKIN ASSESSMENT Harper Scale Sensory Perception: No Impairment- Responds to verbal commands. Has no sensory deficit which would limit ability to feel or voice pain or discomfort (11/02/2016 05:00:Sully Sunshine RN) Harper Scale Moisture: Rarely Moist- Skin is usually dry. Linen only requires changing at routine intervals (11/02/2016 05:00:Sully Sunshine RN) Harper Scale Activity: Walks Frequently- Walks outside the room at least twice a day and inside room at least every 2 hours during the day. (11/02/2016 05:00:Sully Sunshine RN) Harper Scale Mobility: No Limitations- Makes major and frequent changes in position without assistance (11/02/2016 05:00:Sully Sunshine RN) Harper Scale Nutrition: Excellent- Eats most of every meal. Never refuses a meal. Usually eats a total of 4 or more servings of meat and dairy products. Occasionally eats between meals. Does not require supplementation (11/02/2016 05:00:Sully Sunshine RN) Harper Scale Friction and Shear: No Apparent Problem- Moves in bed and in chair independently and has sufficient muscle strength to lift up completely during move. Maintains good position in bed or chair at all times (11/02/2016 05:00:Sully Sunshine RN) Harper Scale Total: 23 (11/02/2016 05:00:QS system process) Harper Scale Risk: No Risk of Pressure Ulcer Noted at this Time (11/02/2016 05:00:QS system process) SUPPORT Family Support: Significant Other supportive, at bedside frequently (11/02/2016 05:00:Sully Ring, RN) Emotional State: Calm/Relaxed (11/02/2016 05:00:Sully Ring, RN) SAFETY Call [place] Within Reach: Yes (11/02/2016 05:00:Sully Ring, RN) Side Rails Up: Yes (11/02/2016 05:00:Sully Ring, RN) Bed Wheels Locked: Yes (11/02/2016 05:00:Sully Ring, RN) Arm Bands Present: Yes (11/02/2016 05:00:Sully Ring, RN) Isolation: [place] (11/02/2016 05:00:Sully Ring, RN) FALL SCREEN Fall Risk History of Falling: (0) No (11/02/2016 05:00:Sully Sunshine RN) Fall Risk Secondary Diagnosis: (0) No (11/02/2016 05:00:Sully Sunshine RN) Fall Risk Ambulatory Aid: (0) None/Bedrest/Wheelchair/Nurse Assist (11/02/2016 05:00:Sully Sunshine RN) Fall Risk IV Therapy: (0) No (11/02/2016 05:00:Sully Sunshine RN) Fall Risk Gait: (0) Normal/Bedrest/Immobile (11/02/2016 05:00:Sully Sunshine RN) Fall Risk Mental Status: (0) Oriented to Own Ability (11/02/2016 05:00:Sully Sunshine RN) Fall Risk Score: 0 (11/02/2016 05:00:QS system process) Fall Risk Score Definition: No Risk: No action required (11/02/2016 05:00:QS system process) RECENT TRAVEL/INFECTIOUS DISEASE Recent Exp Communicable Disease: No (11/02/2016 05:00:Sully Sunshine RN) Cough or Fever: No (11/02/2016 05:00:Sully Sunshine RN) Foreign Travel Past 10 Days: No (11/02/2016 05:00:Sully Sunshine RN) Open Wounds or Sores: No (11/02/2016 05:00:Sully Sunshine RN) Prior Antibiotic Resistance Tx: No (11/02/2016 05:00:Sully Sunshine RN) Isolation Initiated: No (11/02/2016 05:00:Sully Sunshine RN) Pt/Family Education: Handwashing Hygiene (11/02/2016 05:00:Sully Sunshine RN) BABY A FHR Baseline Rate (bpm) Baby A: 125 (11/02/2016 07:45:Meg Bishop RN) FHR Baseline Rate (bpm) Baby A: 125 (11/02/2016 07:30:Meg Bishop RN) FHR Baseline Rate (bpm) Baby A: 120 (11/02/2016 07:15:Meg Bishop RN) FHR Baseline Rate (bpm) Baby A: 145 (11/02/2016 07:00:Sully Sunshine RN) FHR Baseline Rate (bpm) Baby A: 140 (11/02/2016 06:30:Sully Sunshine RN) FHR Baseline Rate (bpm) Baby A: 140 (11/02/2016 06:00:Sully Sunshine RN) FHR Baseline Rate (bpm) Baby A: 145 (11/02/2016 05:30:Sully Sunshine RN) Variability Baby A: Moderate 6-25 bpm (11/02/2016 07:45:Meg Bishop RN) Variability Baby A: Moderate 6-25 bpm (11/02/2016 07:30:Meg Bishop RN) Variability Baby A: Moderate 6-25 bpm (11/02/2016 07:15:Meg Bishop RN) Variability Baby A: Moderate 6-25 bpm (11/02/2016 07:00:Sully Sunshine RN) Variability Baby A: Moderate 6-25 bpm (11/02/2016 06:30:Sully Sunshine RN) Variability Baby A: Moderate 6-25 bpm (11/02/2016 06:00:Sully Sunshine RN) Variability Baby A: Minimal - Undetectable to <=5 bpm (11/02/2016 05:30:Sully Sunshine RN) Accelerations Baby A: 15X15 (11/02/2016 07:30:Meg Bishop RN) Accelerations Baby A: 15X15 (11/02/2016 07:15:Meg Bishop RN) Accelerations Baby A: None (11/02/2016 07:00:Sully Sunshine RN) Accelerations Baby A: 15X15 (11/02/2016 06:30:Sully Sunshine RN) Accelerations Baby A: 15X15 (11/02/2016 06:00:Sully Sunshine RN) Accelerations Baby A: None (11/02/2016 05:30:Sully Sunshine RN) Decelerations Baby A: Variable; Prolonged (11/02/2016 07:45:Meg Bishop RN) Decelerations Baby A: Variable (11/02/2016 07:30:Meg Bishop RN) Decelerations Baby A: Early; Variable (11/02/2016 07:15:Meg Bishop RN) Decelerations Baby A: Early; Late (11/02/2016 07:00:Sully Sunshine RN) Decelerations Baby A: Late (11/02/2016 06:30:Sully Sunshine RN) Decelerations Baby A: Late; Variable (11/02/2016 06:00:Sully Sunshine RN) Decelerations Baby A: Variable (11/02/2016 05:30:Sully Sunshine RN)
--- NOTE | 2016-11-03 04:46 | L&D General Admission ---
General Admit Datetime Report Generated by CPN: 11/03/2016 04:45 INFORMATION Patient Age: 31 (08/26/2016 12:49:QS system process) EDC: 11/13/2016 00:00 (11/02/2016 04:44:Kari Suggs RN) : 2 (11/02/2016 04:44:Kari Suggs RN) Para: 1 (11/02/2016 04:44:Kari Suggs RN) Term: 1 (11/02/2016 04:44:Kari Suggs RN) : 0 (11/02/2016 04:44:Kari Suggs RN) Spontaneous Abortions: 0 (11/02/2016 04:44:Kari Suggs RN) Induced Abortions: 0 (11/02/2016 04:44:Kari Suggs RN) Livin (11/02/2016 04:44:Kari Suggs RN) Cesareans: 0 (11/02/2016 04:44:Sully Sunshine RN) VBACs: 0 (11/02/2016 04:44:Sully Sunshine RN) Ectopic: 0 (11/02/2016 04:44:Sully Sunshine RN) Multiple Births: 0 (11/02/2016 04:44:Sully Sunshine RN) Baby, Number in Womb: 1 (11/02/2016 04:44:Kari Suggs RN) CARE [facility] (11/02/2016 04:44:Kari Suggs RN) Adequate Care: Yes (11/02/2016 04:44:Kari Suggs RN) Prepregnancy Weight (lb): 166 (11/02/2016 04:44:Kari Suggs RN) Prepregnancy Weight (kg): 75.5 (11/02/2016 04:44:QS system process) Height (in): 67 (11/02/2016 10:54:QS system process) Height (in): 67 (11/02/2016 10:15:QS system process) Height (in): 67 (11/02/2016 05:48:QS system process) Height (in): 67 (11/02/2016 04:55:QS system process) Height (in): 66 (11/02/2016 04:44:QS system process) ALLERGIES Medication Allergy: No (11/02/2016 04:44:Sully Ring, RN) Medication Allergies: No Known Allergies (11/02/2016) (11/02/2016 04:55:QS system process) Medication Allergies: No Known Allergies (10/07/2014) (08/26/2016 12:49:QS system process) Latex Allergy: No Latex Allergies (11/02/2016 04:44:Sully Ring, RN) COMMUNICATION Primary Language: Ghanaian (11/02/2016 04:44:Kari Suggs RN) Medical Tx Preferred Language: Ghanaian (11/02/2016 04:44:Sully Ring, RN) Communication Barrier(s): None (11/02/2016 04:44:Sully Ring, RN) DEMOGRAPHICS Address: [address] [place] [id number] (08/26/2016 12:49:QS system process) Zipcode: [id number] (08/26/2016 12:49:QS system process) Home (08/26/2016 12:49:QS system process) SSN: [id number] (08/26/2016 12:49:QS system process) Next of Kin Name: NATY REDMAN (08/26/2016 12:49:QS system process) Next of Kin (08/26/2016 12:49:QS system process) Next of Kin Relationship: SPO (08/26/2016 12:49:QS system process) Date of : 1985 (08/26/2016 12:49:QS system process) Marital Status: (08/26/2016 12:49:QS system process) Sex: Female (08/26/2016 12:49:QS system process) Race: (08/26/2016 12:49:QS system process) Ethnicity: Non- or (08/26/2016 12:49:QS system process) Muslim: Rastafari (08/26/2016 12:49:QS system process) DRUG AND ALCOHOL USE Alcohol: No (11/02/2016 04:44:Sully Sunshine RN) Cigarettes: Never Smoker. [id number] (11/02/2016 04:44:Sully Sunshine RN) Marijuana: No (11/02/2016 04:44:Sully Sunshine RN) Cocaine: No (11/02/2016 04:44:Sully Sunshine RN) Other Illicit Drugs: No (11/02/2016 04:44:Sully Sunshine RN) VACCINE HISTORY Influenza Vaccine: Yes (11/02/2016 04:44:Sully Sunshine RN) Influenza Date: 2016 (11/02/2016 04:44:Sully Sunshine RN) Tetanus Vaccine: Yes (11/02/2016 04:44:Sully Sunshine RN) Tdap Vaccine: Yes (11/02/2016 04:44:Sully Sunshine RN) Hepatitis B Vaccine: Yes (11/02/2016 04:44:Sully Sunshine RN) Silk Blocker: [facility] (11/02/2016 04:44:Sully Sunshine RN) Feeding Preference: Breast (11/02/2016 04:44:Sully Sunshine RN) Benefit of Breast Feed Discussed: Yes (11/02/2016 04:44:Sully Sunshine RN) Circumcision: No (11/02/2016 04:44:Sully Sunshine RN) Classes Attended: No (11/02/2016 04:44:Sully Sunshine RN) Tubal Ligation: No (11/02/2016 04:44:Sully Sunshine RN) Tubal Authorization Signed: N/A (11/02/2016 04:44:Sully Sunshine RN) Consent: N/A (11/02/2016 04:44:Sully Sunshine RN) Consent Signed: N/A (11/02/2016 04:44:Sully Sunshine RN) Pain Management Plans: Natural; Epidural (11/02/2016 04:44:Sully Sunshine RN) Plans for Labor and Delivery: None (11/02/2016 04:44:Sully Sunshine RN) Support Person: Mendoza Mecum (11/02/2016 04:44:Sully Sunshine RN) Support Person Relationship: (11/02/2016 04:44:Sully Sunshine RN) Cultural/Spritual Practice: No (11/02/2016 04:44:Sully Sunshine RN) Spir/Cult Dietary Needs: No (11/02/2016 04:44:Sully Sunshine RN) LIVING SITUATION/DISCHARGE PLAN Living Arrangements: House (11/02/2016 04:44:Sully Sunshine RN) Adequate Access to:: Electric; Heat; Refrigeration; Plumbing/Running water; Phone; Transportation (11/02/2016 04:44:Sully Sunshine RN) WIC Program: No (11/02/2016 04:44:Sully Sunshine RN) Discharge Submersible Pilot Person: Mendoza (11/02/2016 04:44:Sully Sunshine RN) Person to Help after Discharge: Mendoza (11/02/2016 04:44:Sully Sunshine RN) Currently Using Commun Resources: No (11/02/2016 04:44:Sully Sunshine RN) Outside Agency/Flight Dynamicist: N/A (11/02/2016 04:44:Sully Sunshine RN) Car Seat for Discharge: Yes (11/02/2016 04:44:Sully Sunshine RN) Adoption Requested: No (11/02/2016 04:44:Sully Sunshine RN) Pt Contact w/ Post : N/A (11/02/2016 04:44:Sully Sunshine RN) LABS Blood Type: AB Positive (11/02/2016 04:44:Kari Suggs RN) Hemoglobin: 13.2 (11/02/2016 06:12:QS system process) Hematocrit: 37.3 (11/02/2016 06:12:QS system process) MCV: 91 (11/02/2016 06:12:QS system process) Group Beta Strep: negative (11/02/2016 04:44:Kari Suggs RN) Gonorrhea: Negative (11/02/2016 04:44:Kari Suggs RN) Chlamydia: Negative (11/02/2016 04:44:Kari Suggs RN) RPR/VDRL: Nonreactive (11/02/2016 04:44:Kari Suggs RN) HIV Results: negative (11/02/2016 04:44:Kari Suggs RN) Hepatitis B: Negative (11/02/2016 04:44:Kari Suggs RN) Rubella: Immune (11/02/2016 04:44:Kari Suggs RN) OB/PREVIOUS HISTORY Previous Procedures: Ultrasound; NST (11/02/2016 04:44:Kari Suggs RN) Previous Procedures: Ultrasound (11/02/2016 04:44:Sully Sunshine RN) Current Procedures: Ultrasound; NST (11/02/2016 04:44:Kari Suggs RN) Current Procedures: Ultrasound (11/02/2016 04:44:Sully Sunshine RN) History of Previous : No (11/02/2016 04:44:Sully Sunshine RN) History of Gestational Diabetes: No (11/02/2016 04:44:Sully Sunshine RN) History of PIH: No (11/02/2016 04:44:Sully Sunshine RN) History of Incompetent Cervix: No (11/02/2016 04:44:Sully Sunshine RN) History of Placenta Previa/Abrup: No (11/02/2016 04:44:Sully Sunshine RN) History of Macrosomia: No (11/02/2016 04:44:Sully Sunshine RN) History of IUGR: No (11/02/2016 04:44:Sully Sunshine RN) History of Hemorrhage: No (11/02/2016 04:44:Sully Sunshine RN) History of Loss/Stillborn: No (11/02/2016 04:44:Sully Sunshine RN) History of : No (11/02/2016 04:44:Sully Sunshine RN) History of D (Rh) Sensitization: No (11/02/2016 04:44:Sully Sunshine RN) History Recurrent Loss/Stillborn: No (11/02/2016 04:44:Sully Sunshine RN) History Depression/PP Depression: No (11/02/2016 04:44:Sully Sunshine RN) History of Uterine Anomaly/JOANIE: No (11/02/2016 04:44:Sully Sunshine RN) History of Infertility: No (11/02/2016 04:44:Sully Sunshine RN) History of ART Treatment: No (11/02/2016 04:44:Sully Sunshine RN) History of JOANIE: No (11/02/2016 04:44:Sully Sunshine RN) Comments Obstetrical History: g1-2014, 38+2, female, , 6lb 5oz, records state she was in labor for 24 hours but then in problem list in records states that she had a precipitous delivery so that she missed her epidural, hx of pos DSR last but baby is fine g2-current , S>D as of 08/2016 (11/02/2016 04:44:Kari Suggs RN) Comments Obstetrical History: G1: G2: current (11/02/2016 04:44:Sully Sunshine RN) MEDICAL HISTORY Med Hx Diabetes: No (11/02/2016 04:44:Sully Sunshine RN) Med Hx Hypertension: No (11/02/2016 04:44:Sully Sunshine RN) Med Hx Heart Disease: No (11/02/2016 04:44:Sully Sunshine RN) Med Hx Autoimmune Disorder: No (11/02/2016 04:44:Sully Sunshine RN) Med Hx Kidney Disease/UTI: No (11/02/2016 04:44:Sully Sunshine RN) Med Hx Neurologic/Epilepsy: No (11/02/2016 04:44:Sully Sunshine RN) Med Hx Psychiatric Disorders: No (11/02/2016 04:44:Sully Sunshine RN) Med Hx Hepatitis/Liver Disease: No (11/02/2016 04:44:Sully Sunshine RN) Med Hx Varicosities/Phlebitis: No (11/02/2016 04:44:Sully Sunshine RN) Med Hx Thyroid Dysfunction: No (11/02/2016 04:44:Sully Sunshine RN) Med Hx Trauma/Violence: No (11/02/2016 04:44:Sully Sunshine RN) Med Hx Blood Transfusion: No (11/02/2016 04:44:Sully Sunshine RN) Med Hx Pulmonary (Asthma,TB): No (11/02/2016 04:44:Sully Sunshine RN) Med Hx Breast: No (11/02/2016 04:44:Sully Sunshine RN) Med Hx NUTRITION PARTNER Surgery: No (11/02/2016 04:44:Sully uSnshine RN) Med Hx Hospitalization/Surgery: Yes (11/02/2016 04:44:Kari Suggs RN) Med Hx Hospitalization/Surgery: No (11/02/2016 04:44:Sully Sunshine RN) Med Hx Anesthetic Complications: No (11/02/2016 04:44:Sully Sunshine RN) Med Hx Abnormal Pap Smear: No (11/02/2016 04:44:Sully Sunshine RN) Other Medical Diseases: Yes (11/02/2016 04:44:Kari Suggs RN) Other Medical Diseases: No (11/02/2016 04:44:Sully Sunshine RN) Med Hx Significant Family Hx: No (11/02/2016 04:44:Sully Sunshine RN) Details of Med/Surg Hx: childbirth, anemia, wisdom teeth. Hx of an irregularly fast heartbeat in the past-halter monitor and EKG found no abnormalities (pt states has not had this issue during this ) (11/02/2016 04:44:Sully Sunshine RN) INFECTIOUS HISTORY Inf Hx Gonorrhea: No (11/02/2016 04:44:Sully Sunshine, RN) Inf Hx Chlamydia: No (11/02/2016 04:44:Sully Sunshine, RN) Inf Hx Syphilis: No (11/02/2016 04:44:Sully Sunshine, RN) Inf Hx HIV/AIDS: No (11/02/2016 04:44:Sully Sunshine RN) Inf Hx Human Papilloma Virus: No (11/02/2016 04:44:Sully Sunshine, RN) Inf Hx Pt/Partner Genital Herpes: No (11/02/2016 04:44:Sully Sunshine RN) Inf Hx Tuberculosis/Exposure: No (11/02/2016 04:44:Sully Sunshine RN) Inf Hx Hepatitis B,C: No (11/02/2016 04:44:Sully Sunshine, RN) Inf Hx Rash or Viral Illness: No (11/02/2016 04:44:Sully Sunshine RN) Details of Infectious Hx: denies (11/02/2016 04:44:Sully Ring, RN) GENETIC HISTORY Gen Hx Age >=35 at PASCUAL: No (11/02/2016 04:44:Sully Sunshine, RN) Gen Hx Thalassemia: No (11/02/2016 04:44:Sully Sunshine RN) Gen Hx Congenital Heart Defect: No (11/02/2016 04:44:Sully Ring, RN) Gen Hx Neural Tube Defect: No (11/02/2016 04:44:Sully Sunshine RN) Gen Hx Down's Syndrome: No (11/02/2016 04:44:Sully Sunshine RN) Gen Hx Timbo-Sachs: No (11/02/2016 04:44:Sully Sunshine RN) Gen Hx Sulma: No (11/02/2016 04:44:Sully Sunshine RN) Gen Hx Familial Dysautonomia: No (11/02/2016 04:44:Sully Sunshine RN) Gen Hx Sickle Cell Disease/Trait: No (11/02/2016 04:44:Sully Sunshine RN) Gen Hx Hemophilia/Blood Disorder: No (11/02/2016 04:44:Sully Sunshine RN) Gen Hx Muscular Dystrophy: No (11/02/2016 04:44:Sully Sunshine RN) Gen Hx Cystic Fibrosis: No (11/02/2016 04:44:Sully Sunshine RN) Gen Hx Huntingtons Chorea: No (11/02/2016 04:44:Sully Sunshine RN) Gen Hx Mental Retardation/Autism: No (11/02/2016 04:44:Sully Sunshine RN) Gen Hx Tested for Fragile X: No (11/02/2016 04:44:Sully Sunshine RN) Gen Hx Other Inher/Chromosomal: No (11/02/2016 04:44:Sully Sunshine RN) Gen Hx Maternal Metabolic DO: No (11/02/2016 04:44:Sully Sunshine RN) Gen Hx Pt Father or FOB Defect: No (11/02/2016 04:44:Sully Sunshine RN) Gen Hx Other Genetic History: No (11/02/2016 04:44:Sully Sunshine RN) Gen Hx Drugs/Meds since LMP: Yes (11/02/2016 04:44:Sully Sunshine RN) Gen Hx Medications: PNV, iron, antacids, tylenol (11/02/2016 04:44:Sully Sunshine RN) Details of Genetic History: FOB brother has autism (11/02/2016 04:44:Sully Sunshine RN)
[2016-11-03] MEDS: IBUPROFEN 800 MG TABLET PO SCH ×3 (06:02→22:36)
[2016-11-03 07:02] LABS: HEMATOCRIT 38.2 % (36.0-47.0); HEMOGLOBIN 13.4 g/dL (12.0-15.5); MEAN CORPUSCULAR HEMOGLOBIN 31.8 pg (27.0-33.4); MEAN CORPUSCULAR VOLUME 91 fl (80-97); RED BLOOD COUNT 4.21 10^6/uL (3.72-5.28); RED CELL DISTRIBUTION WIDTH 15.2 % (11.5-14.0); WHITE BLOOD COUNT 14.4 10^3/uL (4.0-10.5)
--- NOTE | 2016-11-03 09:05 | PDOC PROGRESS REPORT ---
Subjective-OB Subjective: Post Delivery Day: 31 year old. Denies any needs at this time Doing well, no c/o, breast feeding, voiding, eating well, no c/o Physical Exam (OB) Vital Signs: Temp Pulse Resp BP Pulse Ox 98.5 F 75 18 117/68 98 11/03/16 08:29 11/03/16 08:29 11/03/16 08:29 11/03/16 07:58 11/03/16 08:29 Intake & Output 11/02/16 11/03/16 11/04/16 06:59 06:59 06:59 Intake Total 1300 Balance 1300 Weight 88.15 kg - PIH/Pre-Eclampsia Epigastric Pain: No Visual Changes: No - Lochia Lochia Amount: Small 10-25 ml Lochia Color: Rubra/Red - Abdomen Description: Soft, Round Hernia Present: No Fundal Description: Firm, Midline Fundal Height: u/u - u/2 Objective-Diagnostic Laboratory: 11/03/16 06:40 11/03/16 06:40 WBC 14.4 H RBC 4.21 Hgb 13.4 Hct 38.2 MCV 91 MCH 31.8 MCHC 35.0 RDW 15.2 H Plt Count 240 Assessment and Plan(PN) - Assessment and Plan (1) Normal vaginal delivery Is this a current diagnosis for this admission?: Yes - Time Spent with Patient Time with patient: Less than 15 minutes Medications reviewed and adjusted accordingly: Yes - Disposition Anticipated Discharge: Home Within: within 24 hours
[2016-11-03] MEDS: PRENATAL VITAMIN W-O CA NO5/FE FUMARATE/FA CAPSULE PO SCH (10:32)
[2016-11-03] MEDS: DOCUSATE SODIUM 100 MG CAPSULE PO SCH ×2 (10:32→17:10)
[2016-11-03] MEDS: FERROUS SULFATE 325 MG TABLET PO SCH ×2 (10:32→17:10)
[2016-11-03] MEDS: SENNOSIDES/DOCUSATE 8.6-50 MG 1 EACH TABLET PO SCH (10:33)
--- NOTE | 2016-11-03 10:46 | L&D Current Admission ---
Current Admit Datetime Report Generated by CPN: 11/03/2016 10:45 ADMISSION INFORMATION Current Admit Date/Time: 11/02/2016 05:38 (11/02/2016 05:55:Sully Sunshine RN) Reason for Admission: Onset of Labor (11/02/2016 05:55:Sully Sunshine RN) Chief Complaint: Contractions (11/02/2016 05:55:Sully Sunshine RN) Chief Complaint: Contractions (11/02/2016 05:00:Sully Sunshine RN) Medications During : Ferrous Sulfate (Iron); Vitamin (11/02/2016 05:55:Sully Sunshine RN) EGA per Dates: 38.3 (11/02/2016 05:55:QS system process) Method of Arrival: Wheelchair (11/02/2016 05:55:Sully Sunshine RN) Admitted From: Home (11/02/2016 05:55:Sully Sunshine RN) Reason for Induction: Not Applicable (11/02/2016 05:55:Sully Sunshine RN) Records Available: Yes (11/02/2016 05:55:Sully Sunshine RN) General Admission Information: Reviewed; Updated (11/02/2016 05:55:Sully Sunshine RN) General Admission Reviewed By: Rosalie Sunshine RN (11/02/2016 05:55:Sully Sunshine RN) BELONGINGS/ADVANCED DIRECTIVES Other Belongings: See [facility] valuables form (11/02/2016 05:55:Sully Sunshine RN) Disposition of Belongings: Kept with Patient (11/02/2016 05:55:Sully Sunshine RN) Advance Direct for Healthcare: No, and Wants No Information (11/02/2016 05:55:Sully Sunshine RN) Durable Power of Family Service Aide: No (11/02/2016 05:55:Sully Sunshine RN) Living Will: No (11/02/2016 05:55:Sully Sunshine RN) Organ Donor: No (11/02/2016 05:55:Sully Sunshine RN) Pt Rights Information Given: Yes (11/02/2016 05:55:Sully Sunshine RN) Pt Understands Pt Rights: Yes (11/02/2016 05:55:Sully Sunshine RN) LEARNING ASSESSMENT Knowledge Level: Understands L_D Process; Understands Diagnosis (11/02/2016 05:55:Sully Sunshine RN) Barriers to Learning: None (11/02/2016 05:55:Sully Sunshine RN) Learning Readiness: Motivated (11/02/2016 05:55:Sully Sunshine RN) Learns Best By: 1 to 1 Instruction; Videos (11/02/2016 05:55:Sully Sunshine RN) Learning Needs: Labor and Delivery Process (11/02/2016 05:55:Sully Sunshine RN) DOMESTIC VIOLANCE SCREENING Dom Viol Threatened/Hurt: No (11/02/2016 05:55:Sully Sunshine RN) Hx of Abuse/Neglect past 2yrs: No (11/02/2016 05:55:Sully Sunshine RN) Feel Unsafe Going Home: No (11/02/2016 05:55:Sully Sunshine RN) Addt'l Observ Indicating Abuse: No (11/02/2016 05:55:Sully Sunshine RN) Reason Unable to Complete Screen: N/A, Screen Completed (11/02/2016 05:55:Sully Sunshine RN) Considered Personal Harm/Suicide: No (11/02/2016 05:55:Sully Sunshine RN) NUTRITIONAL/FUNCTIONAL SCREENING Problem with Appetite >5 Days: No (11/02/2016 05:55:Sully Sunshine RN) Chew/Swallow Difficulties: No (11/02/2016 05:55:Sully Sunshine RN) Inappropriate Wt Gain/Loss: No (11/02/2016 05:55:Sully Sunshine RN) Presence Skin Breakdown/Ulcer: No (11/02/2016 05:55:Sully Sunshine RN) Special Diet: No (11/02/2016 05:55:Sully Sunshine RN) Pt Requests State Comptroller Visit: No (11/02/2016 05:55:Sully Sunshine RN) Hx of Any of the Following?: N/A (11/02/2016 05:55:Sully Sunshine RN) New Diagnosis of: N/A (11/02/2016 05:55:Sully Sunshine RN) Requires Assist w/Ambulation: No (11/02/2016 05:55:Sully Sunshine RN) Uses Assist Device to Ambulate: No (11/02/2016 05:55:Sully Sunshine RN) Pt Requires Help w/ADL's: No (11/02/2016 05:55:Sully Sunshine RN)
--- NOTE | 2016-11-03 10:46 | L&D General Admission ---
General Admit Datetime Report Generated by CPN: 11/03/2016 10:45 INFORMATION Patient Age: 31 (08/26/2016 12:49:QS system process) EDC: 11/13/2016 00:00 (11/02/2016 04:44:Kari Suggs RN) : 2 (11/02/2016 04:44:Kari Suggs RN) Para: 1 (11/02/2016 04:44:Kari Suggs RN) Term: 1 (11/02/2016 04:44:Kari Suggs RN) : 0 (11/02/2016 04:44:Kari Suggs RN) Spontaneous Abortions: 0 (11/02/2016 04:44:Kari Suggs RN) Induced Abortions: 0 (11/02/2016 04:44:Kari Suggs RN) Livin (11/02/2016 04:44:Kari Suggs RN) Cesareans: 0 (11/02/2016 04:44:Sully Sunshine RN) VBACs: 0 (11/02/2016 04:44:Sully Sunshine RN) Ectopic: 0 (11/02/2016 04:44:Sully Sunshine RN) Multiple Births: 0 (11/02/2016 04:44:Sully Sunshine RN) Baby, Number in Womb: 1 (11/02/2016 04:44:Kari Suggs RN) CARE Primary Physician [facility] (11/02/2016 04:44:Kari Suggs RN) Adequate Care: Yes (11/02/2016 04:44:Kari Suggs RN) Prepregnancy Weight (lb): 166 (11/02/2016 04:44:Kari Suggs RN) Prepregnancy Weight (kg): 75.5 (11/02/2016 04:44:QS system process) Height (in): 67 (11/02/2016 10:54:QS system process) Height (in): 67 (11/02/2016 10:15:QS system process) Height (in): 67 (11/02/2016 05:48:QS system process) Height (in): 67 (11/02/2016 04:55:QS system process) Height (in): 66 (11/02/2016 04:44:QS system process) ALLERGIES Medication Allergy: No (11/02/2016 04:44:Sully Ring, RN) Medication Allergies: No Known Allergies (11/02/2016) (11/02/2016 04:55:QS system process) Medication Allergies: No Known Allergies (10/07/2014) (08/26/2016 12:49:QS system process) Latex Allergy: No Latex Allergies (11/02/2016 04:44:Sully Ring, RN) COMMUNICATION Primary Language: Stateless (11/02/2016 04:44:Kari Suggs RN) Medical Tx Preferred Language: Stateless (11/02/2016 04:44:Sully Ring, RN) Communication Barrier(s): None (11/02/2016 04:44:Sully Ring, RN) DEMOGRAPHICS Address: [address] [place] [id number] (08/26/2016 12:49:QS system process) Zipcode: [address] (08/26/2016 12:49:QS system process) Home (08/26/2016 12:49:QS system process) SSN: [id number] (08/26/2016 12:49:QS system process) Next of Kin Name: NATY REDMAN (08/26/2016 12:49:QS system process) Next of Kin (08/26/2016 12:49:QS system process) Next of Kin Relationship: SPO (08/26/2016 12:49:QS system process) Date of : 1985 (08/26/2016 12:49:QS system process) Marital Status: (08/26/2016 12:49:QS system process) Sex: Female (08/26/2016 12:49:QS system process) Race: (08/26/2016 12:49:QS system process) Ethnicity: Non- or (08/26/2016 12:49:QS system process) Temple: Temple (08/26/2016 12:49:QS system process) DRUG AND ALCOHOL USE Alcohol: No (11/02/2016 04:44:Sully Sunshine RN) Cigarettes: Never Smoker. [id number] (11/02/2016 04:44:Sully Sunshine RN) Marijuana: No (11/02/2016 04:44:Sully Sunshine RN) Cocaine: No (11/02/2016 04:44:Sully Sunshine RN) Other Illicit Drugs: No (11/02/2016 04:44:Sully Sunshine RN) VACCINE HISTORY Influenza Vaccine: Yes (11/02/2016 04:44:Sully Sunshine RN) Influenza Date: 2016 (11/02/2016 04:44:Sully Sunshine RN) Tetanus Vaccine: Yes (11/02/2016 04:44:Sully Sunshine RN) Tdap Vaccine: Yes (11/02/2016 04:44:Sully Sunshine RN) Hepatitis B Vaccine: Yes (11/02/2016 04:44:Sully Sunshine RN) Internet Marketing Specialist: [facility] (11/02/2016 04:44:Sully Sunshine RN) Feeding Preference: Breast (11/02/2016 04:44:Sully Sunshine RN) Benefit of Breast Feed Discussed: Yes (11/02/2016 04:44:Sully Sunshine RN) Circumcision: No (11/02/2016 04:44:Sully Sunshine RN) Classes Attended: No (11/02/2016 04:44:Sully Sunshine RN) Tubal Ligation: No (11/02/2016 04:44:Sully Sunshine RN) Tubal Authorization Signed: N/A (11/02/2016 04:44:Sully Sunshine RN) Consent: N/A (11/02/2016 04:44:Sully Sunshine RN) Consent Signed: N/A (11/02/2016 04:44:Sully Sunshine RN) Pain Management Plans: Natural; Epidural (11/02/2016 04:44:Sully Sunshine RN) Plans for Labor and Delivery: None (11/02/2016 04:44:Sully Sunshine RN) Support Person: Mendoza Mecum (11/02/2016 04:44:Sully Sunshine RN) Support Person Relationship: (11/02/2016 04:44:Sully Sunshine RN) Cultural/Spritual Practice: No (11/02/2016 04:44:Sully Sunshine RN) Spir/Cult Dietary Needs: No (11/02/2016 04:44:Sully Sunshine RN) LIVING SITUATION/DISCHARGE PLAN Living Arrangements: House (11/02/2016 04:44:Sully Sunshine RN) Adequate Access to:: Electric; Heat; Refrigeration; Plumbing/Running water; Phone; Transportation (11/02/2016 04:44:Sully Sunshine RN) WIC Program: No (11/02/2016 04:44:Sully Sunshine RN) Discharge Stock Broker Person: Mendoza (11/02/2016 04:44:Sully Sunshine RN) Person to Help after Discharge: Mendoza (11/02/2016 04:44:Sully Sunshine RN) Currently Using Commun Resources: No (11/02/2016 04:44:Sully Sunshine RN) Outside Agency/Assembler Surgical Garment: N/A (11/02/2016 04:44:Sully Sunshine RN) Car Seat for Discharge: Yes (11/02/2016 04:44:Sully Sunshine RN) Adoption Requested: No (11/02/2016 04:44:Sully Sunshine RN) Pt Contact w/ Post : N/A (11/02/2016 04:44:Sully Sunshine RN) LABS Blood Type: AB Positive (11/02/2016 04:44:Kari Suggs RN) Hemoglobin: 13.4 (11/03/2016 06:40:QS system process) Hemoglobin: 13.2 (11/02/2016 06:12:QS system process) Hematocrit: 38.2 (11/03/2016 06:40:QS system process) Hematocrit: 37.3 (11/02/2016 06:12:QS system process) MCV: 91 (11/03/2016 06:40:QS system process) MCV: 91 (11/02/2016 06:12:QS system process) Group Beta Strep: negative (11/02/2016 04:44:Kari Suggs RN) Gonorrhea: Negative (11/02/2016 04:44:Kari Suggs RN) Chlamydia: Negative (11/02/2016 04:44:Kari Suggs RN) RPR/VDRL: Nonreactive (11/02/2016 04:44:Kari Suggs RN) HIV Results: negative (11/02/2016 04:44:Kari Suggs RN) Hepatitis B: Negative (11/02/2016 04:44:Kari Suggs RN) Rubella: Immune (11/02/2016 04:44:Kari Suggs RN) OB/PREVIOUS HISTORY Previous Procedures: Ultrasound; NST (11/02/2016 04:44:Kari Suggs RN) Previous Procedures: Ultrasound (11/02/2016 04:44:Sully Sunshine RN) Current Procedures: Ultrasound; NST (11/02/2016 04:44:Kari Suggs RN) Current Procedures: Ultrasound (11/02/2016 04:44:Sully Sunshine RN) History of Previous : No (11/02/2016 04:44:Sully Sunshine RN) History of Gestational Diabetes: No (11/02/2016 04:44:Sully Sunshine RN) History of PIH: No (11/02/2016 04:44:Sully Sunshine RN) History of Incompetent Cervix: No (11/02/2016 04:44:Sully Sunshine RN) History of Placenta Previa/Abrup: No (11/02/2016 04:44:Sully Sunshine RN) History of Macrosomia: No (11/02/2016 04:44:Sully Sunshine RN) History of IUGR: No (11/02/2016 04:44:Sully Sunshine RN) History of Hemorrhage: No (11/02/2016 04:44:Sully Sunshine RN) History of Loss/Stillborn: No (11/02/2016 04:44:Sully Sunshine RN) History of : No (11/02/2016 04:44:Sully Sunshine RN) History of D (Rh) Sensitization: No (11/02/2016 04:44:Sully Sunshine RN) History Recurrent Loss/Stillborn: No (11/02/2016 04:44:Sully Sunshine RN) History Depression/PP Depression: No (11/02/2016 04:44:Sully Sunshine RN) History of Uterine Anomaly/JOANIE: No (11/02/2016 04:44:Sully Sunshine RN) History of Infertility: No (11/02/2016 04:44:Sully Sunshine RN) History of ART Treatment: No (11/02/2016 04:44:Sully Sunshine RN) History of JOANIE: No (11/02/2016 04:44:Sully Sunshine RN) Comments Obstetrical History: g1-2014, 38+2, female, , 6lb 5oz, records state she was in labor for 24 hours but then in problem list in records states that she had a precipitous delivery so that she missed her epidural, hx of pos DSR last but baby is fine g2-current , S>D as of 08/2016 (11/02/2016 04:44:Kari Suggs RN) Comments Obstetrical History: G1: G2: current (11/02/2016 04:44:Sully Sunshine RN) MEDICAL HISTORY Med Hx Diabetes: No (11/02/2016 04:44:Sully Sunshine RN) Med Hx Hypertension: No (11/02/2016 04:44:Sully Sunshine RN) Med Hx Heart Disease: No (11/02/2016 04:44:Sully Sunshine RN) Med Hx Autoimmune Disorder: No (11/02/2016 04:44:Sully Sunshine RN) Med Hx Kidney Disease/UTI: No (11/02/2016 04:44:Sully Sunshine RN) Med Hx Neurologic/Epilepsy: No (11/02/2016 04:44:Sully Sunshine RN) Med Hx Psychiatric Disorders: No (11/02/2016 04:44:Sully Sunshine RN) Med Hx Hepatitis/Liver Disease: No (11/02/2016 04:44:Sully Sunshine RN) Med Hx Varicosities/Phlebitis: No (11/02/2016 04:44:Sully Sunshine RN) Med Hx Thyroid Dysfunction: No (11/02/2016 04:44:Sully Sunshine RN) Med Hx Trauma/Violence: No (11/02/2016 04:44:Sully Sunshine RN) Med Hx Blood Transfusion: No (11/02/2016 04:44:Sully Sunshine RN) Med Hx Pulmonary (Asthma,TB): No (11/02/2016 04:44:Sully Sunshine RN) Med Hx Breast: No (11/02/2016 04:44:Sully Sunshine RN) Med Hx VACUUM FURNACE OPERATOR Surgery: No (11/02/2016 04:44:Sully Sunshine RN) Med Hx Hospitalization/Surgery: Yes (11/02/2016 04:44:Kari Suggs RN) Med Hx Hospitalization/Surgery: No (11/02/2016 04:44:Sully Sunshine RN) Med Hx Anesthetic Complications: No (11/02/2016 04:44:Sully Sunshine RN) Med Hx Abnormal Pap Smear: No (11/02/2016 04:44:Sully Sunshine RN) Other Medical Diseases: Yes (11/02/2016 04:44:Kari Suggs RN) Other Medical Diseases: No (11/02/2016 04:44:Sully Sunshine RN) Med Hx Significant Family Hx: No (11/02/2016 04:44:Sully Sunshine RN) Details of Med/Surg Hx: childbirth, anemia, wisdom teeth. Hx of an irregularly fast heartbeat in the past-halter monitor and EKG found no abnormalities (pt states has not had this issue during this ) (11/02/2016 04:44:Sully Sunshine RN) INFECTIOUS HISTORY Inf Hx Gonorrhea: No (11/02/2016 04:44:Sully Ring, RN) Inf Hx Chlamydia: No (11/02/2016 04:44:Sully Ring, RN) Inf Hx Syphilis: No (11/02/2016 04:44:Sully Ring, RN) Inf Hx HIV/AIDS: No (11/02/2016 04:44:Sully Ring, RN) Inf Hx Human Papilloma Virus: No (11/02/2016 04:44:Sully Ring, RN) Inf Hx Pt/Partner Genital Herpes: No (11/02/2016 04:44:Sully Ring, RN) Inf Hx Tuberculosis/Exposure: No (11/02/2016 04:44:Sully Ring, RN) Inf Hx Hepatitis B,C: No (11/02/2016 04:44:Sully Ring, RN) Inf Hx Rash or Viral Illness: No (11/02/2016 04:44:Sully Ring, RN) Details of Infectious Hx: denies (11/02/2016 04:44:Sully Ring, RN) GENETIC HISTORY Gen Hx Age >=35 at PASCUAL: No (11/02/2016 04:44:Sully Ring, RN) Gen Hx Thalassemia: No (11/02/2016 04:44:Sully Ring, RN) Gen Hx Congenital Heart Defect: No (11/02/2016 04:44:Sully Sunshine RN) Gen Hx Neural Tube Defect: No (11/02/2016 04:44:Sully Sunshine RN) Gen Hx Down's Syndrome: No (11/02/2016 04:44:Sully Sunshine RN) Gen Hx Timbo-Sachs: No (11/02/2016 04:44:Sully Sunshine RN) Gen Hx Sulma: No (11/02/2016 04:44:Sully Sunshine RN) Gen Hx Familial Dysautonomia: No (11/02/2016 04:44:Sully Sunshine RN) Gen Hx Sickle Cell Disease/Trait: No (11/02/2016 04:44:Sully Sunshine RN) Gen Hx Hemophilia/Blood Disorder: No (11/02/2016 04:44:Sully Sunshine RN) Gen Hx Muscular Dystrophy: No (11/02/2016 04:44:Sully Sunshine RN) Gen Hx Cystic Fibrosis: No (11/02/2016 04:44:Sully Sunshine RN) Gen Hx Huntingtons Chorea: No (11/02/2016 04:44:Sully Sunshine RN) Gen Hx Mental Retardation/Autism: No (11/02/2016 04:44:Sully Sunshine RN) Gen Hx Tested for Fragile X: No (11/02/2016 04:44:Sully Sunshine RN) Gen Hx Other Inher/Chromosomal: No (11/02/2016 04:44:Sully Sunshine RN) Gen Hx Maternal Metabolic DO: No (11/02/2016 04:44:Sully Sunshine RN) Gen Hx Pt Father or FOB Defect: No (11/02/2016 04:44:Sully Sunshine RN) Gen Hx Other Genetic History: No (11/02/2016 04:44:Sully Sunshine RN) Gen Hx Drugs/Meds since LMP: Yes (11/02/2016 04:44:Sully Sunshine RN) Gen Hx Medications: PNV, iron, antacids, tylenol (11/02/2016 04:44:Sully Sunshine RN) Details of Genetic History: FOB brother has autism (11/02/2016 04:44:Sully Sunshine RN)
--- NOTE | 2016-11-03 10:46 | L&D Discharge Summary ---
OB Discharge Summary Datetime Report Generated by CPN: 11/03/2016 10:45 DISCHARGE DIAGNOSIS Gestation: 38.3 Number of Babies in Womb: 1 Parity: 1
--- NOTE | 2016-11-03 16:46 | L&D General Admission ---
General Admit Datetime Report Generated by CPN: 11/03/2016 16:45 Hemoglobin: 13.4 (11/03/2016 06:40:QS system process) Hematocrit: 38.2 (11/03/2016 06:40:QS system process) MCV: 91 (11/03/2016 06:40:QS system process)
--- NOTE | 2016-11-03 16:46 | L&D Discharge Summary ---
OB Discharge Summary Datetime Report Generated by CPN: 11/03/2016 16:45 DISCHARGE DIAGNOSIS Gestation: 38.3 Number of Babies in Womb: 1 Parity: 1
--- NOTE | 2016-11-03 22:46 | L&D Discharge Summary ---
OB Discharge Summary Datetime Report Generated by CPN: 11/03/2016 22:45 DISCHARGE DIAGNOSIS Gestation: 38.3 Number of Babies in Womb: 1 Parity: 1
--- NOTE | 2016-11-03 22:46 | L&D General Admission ---
General Admit Datetime Report Generated by CPN: 11/03/2016 22:45 Hemoglobin: 13.4 (11/03/2016 06:40:QS system process) Hematocrit: 38.2 (11/03/2016 06:40:QS system process) MCV: 91 (11/03/2016 06:40:QS system process)
--- NOTE | 2016-11-04 04:46 | L&D Discharge Summary ---
OB Discharge Summary Datetime Report Generated by CPN: 11/04/2016 04:45 DISCHARGE DIAGNOSIS Gestation: 38.3 Number of Babies in Womb: 1 Parity: 1
--- NOTE | 2016-11-04 04:46 | L&D General Admission ---
General Admit Datetime Report Generated by CPN: 11/04/2016 04:45 Hemoglobin: 13.4 (11/03/2016 06:40:QS system process) Hematocrit: 38.2 (11/03/2016 06:40:QS system process) MCV: 91 (11/03/2016 06:40:QS system process)
[2016-11-04] MEDS: IBUPROFEN 800 MG TABLET PO SCH (05:32)
[2016-11-04 09:23] VITALS: BP 124/72
[2016-11-04] MEDS: PRENATAL VITAMIN W-O CA NO5/FE FUMARATE/FA CAPSULE PO SCH (09:41)
[2016-11-04] MEDS: SENNOSIDES/DOCUSATE 8.6-50 MG 1 EACH TABLET PO SCH (09:41)
[2016-11-04] MEDS: FERROUS SULFATE 325 MG TABLET PO SCH (09:41)
[2016-11-04] MEDS: DOCUSATE SODIUM 100 MG CAPSULE PO SCH (09:41)
--- NOTE | 2016-11-04 10:46 | L&D Discharge Summary ---
OB Discharge Summary Datetime Report Generated by CPN: 11/04/2016 10:45 DISCHARGE DIAGNOSIS Gestation: 38.3 Number of Babies in Womb: 1 Parity: 1
--- NOTE | 2016-11-04 10:51 | PDOC DISCHARGE SUMMARY ---
Final Diagnosis Discharge Date: 11/04/16 - Final Diagnosis (1) Normal vaginal delivery Is this a current diagnosis for this admission?: Yes Discharge Data - Discharge Medication Home Medications: Vit#96/Ferrous Fum/FA [ Tablet] 1 tab PO DAILY 10/07/14 Ferrous Sulfate [Iron] 325 mg PO DAILY 11/02/16 Reason(s) for Admission: Onset of Labor Procedures: NST Intrapartum Procedure(s): Spontaneous Vaginal Delivery Complication(s): Laceration-Perineal Laceration-Degree: 2nd - Diagnosis Test Laboratory: Temp Pulse Resp BP Pulse Ox 97.7 F 65 16 124/72 100 11/04/16 08:44 11/04/16 08:44 11/04/16 08:44 11/04/16 08:44 11/04/16 08:44 11/02/16 11/02/16 11/03/16 04:55 06:12 06:40 RBC 4.09 4.21 Hgb 13.2 13.4 Hct 37.3 38.2 Urine Opiates Screen NEGATIVE - Discharge information/Instructions Discharge Activity: Activity As Tolerated, No Lifting Over 10 Pounds, Pelvic Rest, No tub bath Discharge Diet: Regular Disposition: HOME, SELF-CARE Follow up with: [facility] in: 4, Weeks
--- NOTE | 2016-11-04 16:46 | L&D Flow Sheet ---
LD Flowsheet Datetime Report Generated by CPN: 11/04/2016 16:45 Datetime: 11/02/2016 07:26 Temperature (C): 36.5 (QS system process) LaborFlag: Antepartum (QS system process) Datetime: 11/02/2016 07:10 LaborFlag: Antepartum (QS system process) Datetime: 11/02/2016 07:05 LaborFlag: Antepartum (QS system process) Datetime: 11/02/2016 07:01 LaborFlag: Antepartum (QS system process) Datetime: 11/02/2016 07:00 LaborFlag: Antepartum (QS system process) Datetime: 11/02/2016 06:55 LaborFlag: Antepartum (QS system process) Datetime: 11/02/2016 06:50 LaborFlag: Antepartum (QS system process) Datetime: 11/02/2016 06:48 LaborFlag: Antepartum (QS system process) Datetime: 11/02/2016 06:45 LaborFlag: Antepartum (QS system process) Datetime: 11/02/2016 06:40 LaborFlag: Antepartum (QS system process) Datetime: 11/02/2016 06:37 LaborFlag: Antepartum (QS system process) Datetime: 11/02/2016 06:35 LaborFlag: Antepartum (QS system process) Datetime: 11/02/2016 06:30 LaborFlag: Antepartum (QS system process) Datetime: 11/02/2016 06:00 LaborFlag: Antepartum (QS system process)
--- NOTE | 2016-11-04 16:46 | L&D General Admission ---
General Admit Datetime Report Generated by [email or web address]: 11/04/2016 16:45 Height (in): 67 (11/04/2016 10:51:QS system process) Height (in): 67 (11/02/2016 10:54:QS system process) Height (in): 67 (11/02/2016 10:15:QS system process)
--- NOTE | 2016-11-04 16:46 | L&D Discharge Summary ---
OB Discharge Summary Datetime Report Generated by CPN: 11/04/2016 16:45 DISCHARGE DIAGNOSIS Gestation: 38.3 Number of Babies in Womb: 1 Parity: 1
--- NOTE | 2016-11-04 22:45 | L&D General Admission ---
General Admit Datetime Report Generated by [facility]: 11/04/2016 22:45 Height (in): 67 (11/04/2016 10:51:QS system process) Height (in): 67 (11/02/2016 10:54:QS system process) Height (in): 67 (11/02/2016 10:15:QS system process)
--- NOTE | 2016-11-04 22:45 | L&D Discharge Summary ---
OB Discharge Summary Datetime Report Generated by CPN: 11/04/2016 22:45 DISCHARGE DIAGNOSIS Gestation: 38.3 Number of Babies in Womb: 1 Parity: 1
--- NOTE | 2016-11-04 22:45 | L&D Flow Sheet ---
LD Flowsheet Datetime Report Generated by CPN: 11/04/2016 22:45 Datetime: 11/02/2016 07:26 Temperature (C): 36.5 (QS system process) LaborFlag: Antepartum (QS system process) Datetime: 11/02/2016 07:10 LaborFlag: Antepartum (QS system process) Datetime: 11/02/2016 07:05 LaborFlag: Antepartum (QS system process) Datetime: 11/02/2016 07:01 LaborFlag: Antepartum (QS system process) Datetime: 11/02/2016 07:00 LaborFlag: Antepartum (QS system process) Datetime: 11/02/2016 06:55 LaborFlag: Antepartum (QS system process) Datetime: 11/02/2016 06:50 LaborFlag: Antepartum (QS system process) Datetime: 11/02/2016 06:48 LaborFlag: Antepartum (QS system process) Datetime: 11/02/2016 06:45 LaborFlag: Antepartum (QS system process) Datetime: 11/02/2016 06:40 LaborFlag: Antepartum (QS system process) Datetime: 11/02/2016 06:37 LaborFlag: Antepartum (QS system process) Datetime: 11/02/2016 06:35 LaborFlag: Antepartum (QS system process) Datetime: 11/02/2016 06:30 LaborFlag: Antepartum (QS system process) Datetime: 11/02/2016 06:00 LaborFlag: Antepartum (QS system process)
--- NOTE | 2016-11-05 04:46 | L&D Admission Assessment ---
LD ADM ASMT Datetime Report Generated by CPN: 11/05/2016 04:45 Weight (lb): 194 (11/04/2016 10:51:QS system process) Weight (kg): 88.2 (11/04/2016 10:51:QS system process) Total Wt Gain (lb): 28 (11/04/2016 10:51:QS system process) Wt Gain (kg): 12.5 (11/04/2016 10:51:QS system process) BMI: 30.4 (11/04/2016 10:51:QS system process)
--- NOTE | 2016-11-05 04:46 | L&D Discharge Summary ---
OB Discharge Summary Datetime Report Generated by CPN: 11/05/2016 04:45 DISCHARGE DIAGNOSIS Gestation: 38.3 Number of Babies in Womb: 1 Parity: 1
--- NOTE | 2016-11-05 04:46 | L&D General Admission ---
General Admit Datetime Report Generated by CPN: 11/05/2016 04:45 Height (in): 67 (11/04/2016 10:51:QS system process)
--- NOTE | 2016-11-05 10:46 | L&D Admission Assessment ---
LD ADM ASMT Datetime Report Generated by CPN: 11/05/2016 10:45 Weight (lb): 194 (11/04/2016 10:51:QS system process) Weight (kg): 88.2 (11/04/2016 10:51:QS system process) Total Wt Gain (lb): 28 (11/04/2016 10:51:QS system process) Wt Gain (kg): 12.5 (11/04/2016 10:51:QS system process) BMI: 30.4 (11/04/2016 10:51:QS system process)
--- NOTE | 2016-11-05 10:46 | L&D Discharge Summary ---
OB Discharge Summary Datetime Report Generated by CPN: 11/05/2016 10:45 DISCHARGE DIAGNOSIS Gestation: 38.3 Number of Babies in Womb: 1 Parity: 1
--- NOTE | 2016-11-05 10:46 | L&D General Admission ---
General Admit Datetime Report Generated by CPN: 11/05/2016 10:45 Height (in): 67 (11/04/2016 10:51:QS system process)
--- NOTE | 2016-11-05 11:22 | Admission Physical ---
Datetime Report Generated by FLORI: 11/05/2016 11:21 Chief Complaint: Uterine Contractions Admit Plan: Admit to Unit; Initiate Labor Protocol Ectopic: 0 Cesareans: 0 VBACs: 0 Multiple Births: 0 Medical History Comments: childbirth, anemia, wisdom teeth. Hx of an irregularly fast heartbeat in the past-halter monitor and EKG found no abnormalities (pt states has not had this issue during this ) General: Normal HEENT: Normal Neurologic: Normal Thyroid: Normal Heart: Normal Lungs: Normal Breast: Deferred Back: Normal Abdomen: Normal Genitourinary Exam: Normal Extremities: Normal DTRs: Normal Pelvic Type: Adequate Vital Signs: Reviewed; Within Normal Limits Dilatation: 4 Effacement: 80 Station: -2 Contraction Comments: q2-3 Membranes: Intact Monitoring: External US FHR- Baseline: 150 Variability: Moderate 6-25bpm Accelerations: 10X10 Decelerations: Late; Variable FHR Category: Category II Presentation: Vertex Admit Comment: 31yo at 38+3ega presents with regular uterine ctx. Active labor. Upon placement on the monitor she was having intermittent late decels and minimal variability. Now after IVF and Maternal O2 improved variability and spont accels. Cat II FHR tracing at this time. Bulging bag. Labs ordered. H/o Precipitous delivery. GBS negative. EFW 7#. Pelvis proven to 6#5oz. O/w uncomplicated Informed Consent Obtained: Vaginal Delivery; Risks, Benefits and Alternatives Discussed Signature: with User ID: [email or web address]
--- NOTE | 2016-11-05 11:40 | Admission Physical ---
Datetime Report Generated by CPN: 11/05/2016 11:39 CURRENT ADMISSION Chief Complaint: Uterine Contractions Admit Plan: Admit to Unit; Initiate Labor Protocol ALLERGIES Medication Allergies: No Medication Allergies: No Known Allergies (11/02/2016) Medication Allergies: No Known Allergies (10/07/2014) Latex: No Latex Allergies OBSTETRICAL HISTORY EDC: 11/13/2016 00:00 : 2 Para: 1 Term: 1 : 0 SAB: 0 IAB: 0 Ectopic: 0 Livin Cesareans: 0 VBACs: 0 Multiple Births: 0 Gestational Diabetes: No Rh Sensitization: No Incompetent Cervix: No JOANIE: No Infertility: No ART Treatment: No Uterine Anomaly: No IUGR: No Hx Previous C/S: No Macrosomia: No Hx Loss/Stillborn: No PIH: No Hx : No Placenta Previa/Abruption: No Depression/PP Depression: No PTL/PROM: No Post Hemorrhage: No Current Procedures: Ultrasound; NST Current Procedures: Ultrasound Obstetrical History Comments: g1-2014, 38+2, female, , 6lb 5oz, records state she was in labor for 24 hours but then in problem list in records states that she had a precipitous delivery so that she missed her epidural, hx of pos DSR last but baby is fine g2-current , S>D as of 08/2016 Obstetrical History Comments: G1: G2: current SEE RECORDS Alcohol: No Marijuana : No Cocaine: No Other Illicit Drugs: No Cigarettes: Never Smoker. [id number] MEDICAL HISTORY Diabetes: No Blood Transfusion: No Pulmonary Disease (Asthma, TB): No Breast Disease: No Hypertension: No Spring Bender Surgery: No Heart Disease: No Hosp/Surgery: Yes Hosp/Surgery: No Autoimmune Disorder: No Anesthetic Complications: No Kidney Disease: No Abnormal Pap Smear: No Neuro/Epilepsy: No Psychiatric Disorders: No Other Medical Diseases: Yes Other Medical Diseases: No Hepatitis/Liver Disease: No Significant Family History: No Varicosities/Phlebitis: No Trauma/Violence : No Thyroid Dysfunction: No Medical History Comments: childbirth, anemia, wisdom teeth. Hx of an irregularly fast heartbeat in the past-halter monitor and EKG found no abnormalities (pt states has not had this issue during this ) INFECTIOUS HISTORY Gonorrhea: No Genital Herpes: No Chlamydia: No Tuberculosis: No Syphilis: No Hepatitis: No HIV/AIDS Exposure: No Rash or Viral Illness: No HPV: No Infectious History Comments: denies PHYSICAL EXAM General: Normal HEENT: Normal Neurologic: Normal Thyroid: Normal Heart: Normal Lungs: Normal Breast: Deferred Back: Normal Abdomen: Normal Genitourinary Exam: Normal Extremities: Normal DTRs: Normal Pelvic Type: Adequate Vital Signs: Reviewed; Within Normal Limits VAGINAL EXAM Dilatation: 4 Effacement: 80 Station: -2 Contraction Comments: q2-3 MEMBRANES Membranes: Intact FETUS A Monitoring: External US FHR- Baseline: 150 Variability: Moderate 6-25bpm Accelerations: 10X10 Decelerations: Late; Variable FHR Category: Category II Presentation: Vertex Admit Comment: 31yo at 38+3ega presents with regular uterine ctx. Active labor. Upon placement on the monitor she was having intermittent late decels and minimal variability. Now after IVF and Maternal O2 improved variability and spont accels. Cat II FHR tracing at this time. Bulging bag. Labs ordered. H/o Precipitous delivery. GBS negative. EFW 7#. Pelvis proven to 6#5oz. O/w uncomplicated PLANS FOR LABOR AND DELIVERY Labor and Delivery: None Pain Management: Natural; Epidural Feeding Preference: Breast Benefit of Breast Feed Discussed: Yes Circumcision: No INFORMED CONSENT Informed Consent Obtained: Vaginal Delivery; Risks, Benefits and Alternatives Discussed Signature: with User ID: [email or web address]
--- NOTE | 2016-11-05 16:46 | L&D Discharge Summary ---
OB Discharge Summary Datetime Report Generated by CPN: 11/05/2016 16:45 DISCHARGE DIAGNOSIS Gestation: 38.3 Number of Babies in Womb: 1 Parity: 1
--- NOTE | 2016-11-05 22:46 | L&D Discharge Summary ---
OB Discharge Summary Datetime Report Generated by CPN: 11/05/2016 22:45 DISCHARGE DIAGNOSIS Gestation: 38.3 Number of Babies in Womb: 1 Parity: 1
--- NOTE | 2016-11-06 04:45 | L&D Discharge Summary ---
OB Discharge Summary Datetime Report Generated by CPN: 11/06/2016 04:45 DISCHARGE DIAGNOSIS Gestation: 38.3 Number of Babies in Womb: 1 Parity: 1
--- NOTE | 2016-11-06 10:46 | L&D Discharge Summary ---
OB Discharge Summary Datetime Report Generated by CPN: 11/06/2016 10:45 DISCHARGE DIAGNOSIS Gestation: 38.3 Number of Babies in Womb: 1 Parity: 1
--- NOTE | 2016-11-06 16:46 | L&D Discharge Summary ---
OB Discharge Summary Datetime Report Generated by CPN: 11/06/2016 16:45 DISCHARGE DIAGNOSIS Gestation: 38.3 Number of Babies in Womb: 1 Parity: 1
--- NOTE | 2016-11-06 22:46 | L&D Discharge Summary ---
OB Discharge Summary Datetime Report Generated by CPN: 11/06/2016 22:45 DISCHARGE DIAGNOSIS Gestation: 38.3 Number of Babies in Womb: 1 Parity: 1
--- NOTE | 2016-11-07 04:47 | L&D Discharge Summary ---
OB Discharge Summary Datetime Report Generated by CPN: 11/07/2016 04:45 DISCHARGE DIAGNOSIS Gestation: 38.3 Number of Babies in Womb: 1 Parity: 1
--- NOTE | 2016-11-07 10:46 | L&D Discharge Summary ---
OB Discharge Summary Datetime Report Generated by CPN: 11/07/2016 10:45 DISCHARGE DIAGNOSIS Gestation: 38.3 Number of Babies in Womb: 1 Parity: 1
--- NOTE | 2016-11-07 16:46 | L&D Discharge Summary ---
OB Discharge Summary Datetime Report Generated by CPN: 11/07/2016 16:45 DISCHARGE DIAGNOSIS Gestation: 38.3 Number of Babies in Womb: 1 Parity: 1
--- NOTE | 2016-11-07 22:45 | L&D Discharge Summary ---
OB Discharge Summary Datetime Report Generated by CPN: 11/07/2016 22:45 DISCHARGE DIAGNOSIS Gestation: 38.3 Number of Babies in Womb: 1 Parity: 1
--- NOTE | 2016-11-08 04:45 | L&D Discharge Summary ---
OB Discharge Summary Datetime Report Generated by CPN: 11/08/2016 04:45 DISCHARGE DIAGNOSIS Gestation: 38.3 Number of Babies in Womb: 1 Parity: 1
--- NOTE | 2016-11-08 10:45 | L&D Discharge Summary ---
OB Discharge Summary Datetime Report Generated by CPN: 11/08/2016 10:45 DISCHARGE DIAGNOSIS Gestation: 38.3 Number of Babies in Womb: 1 Parity: 1
== END 2016-11-04 13:00 | disposition home or self-care (01) | DRG 775 ==
LOC: LC 04:44 → LR 05:45 → 2N 10:45
PROVIDERS: ADMIT Student in an Organized Health Care Education/Training Program; ATTEND Student in an Organized Health Care Education/Training Program
PROC: 0KQM0ZZ Repair Perineum Muscle, Open Approach (ICD-10-PCS; principal; 2016-11-02)
PROC: 10E0XZZ Delivery of Products of Conception, External Approach (ICD-10-PCS; 2016-11-02)
PROC: 4A1HXCZ Monitoring of Products of Conception, Cardiac Rate, External Approach (ICD-10-PCS; 2016-11-02)
DX: O76 Abnormality in fetal heart rate and rhythm complicating labor and delivery (principal); O69.1XX0 Labor and delivery complicated by cord around neck, with compression, not applicable or unspecified; O70.1 Second degree perineal laceration during delivery; Z37.0 Single live birth; Z3A.38 38 weeks gestation of pregnancy
CPT/HCPCS: 36415; 80307; 81005; 85025; 85027; 86592; 86850; 86900; 86901; J2590; J3490